=== PATIENT | female | born 1940 | race Caucasian/White ===

== ENCOUNTER → 2016-07-31 | Outpatient (REF) | payer MEDICARE, MEDICAID ==
[~2016-07-31] MED LIST: ASPI81TA85 PO; FOSA70TA PO; LEVO112T2 PO; METF500T4 PO; PRAV10TA PO; TRAD5TAB PO
== END | disposition home or self-care (01) ==
LOC: M SFHCPLAZ 17:02
PROVIDERS: ATTEND Physician Assistant Medical
DX: N30.00 Acute cystitis without hematuria (principal)
CPT/HCPCS: 81001; 87088; 87186; G0463

== ENCOUNTER → 2016-08-27 | Outpatient (REF) | payer MEDICARE, MEDICAID ==
[2016-08-27 12:14] LABS: ALBUMIN 3.3 GM/DL (3.2-5.2); ALBUMIN/GLOBULIN RATIO 0.89 (1.00-1.93); BILIRUBIN,TOTAL 0.2 MG/DL (0.2-1.0); CALCIUM LEVEL 8.4 MG/DL (8.8-10.2); CREATININE FOR GFR 1.33 MG/DL (0.55-1.02); FREE T4 1.24 NG/DL (0.76-1.46); GLOMERULAR FILTRATION RATE 41.3 (>39); POTASSIUM SERUM 4.6 MEQ/L (3.5-5.1)
== END ==
LOC: M SFHCPLAZ 09:30
PROVIDERS: ATTEND Physician Assistant Medical
DX: E78.5 Hyperlipidemia, unspecified (principal); N18.3 Chronic kidney disease, stage 3 (moderate); E03.9 Hypothyroidism, unspecified; E11.8 Type 2 diabetes mellitus with unspecified complications

== ENCOUNTER → 2016-09-04 | Outpatient (REF) | payer MEDICARE, MEDICAID ==
[2016-09-04 17:04] LABS: CALCIUM LEVEL 8.8 MG/DL (8.8-10.2); CREATININE FOR GFR 1.51 MG/DL (0.55-1.02); FREE T4 1.18 NG/DL (0.76-1.46); GLOMERULAR FILTRATION RATE 35.7 (>39); MAGNESIUM LEVEL 2.2 MG/DL (1.8-2.4); POTASSIUM SERUM 4.7 MEQ/L (3.5-5.1)
== END ==
LOC: M SFHCPLAZ 11:54
PROVIDERS: ATTEND Physician Assistant Medical
DX: R00.0 Tachycardia, unspecified (principal)

== ENCOUNTER → 2016-09-04 | Outpatient (REF) | payer MEDICARE, MEDICAID ==
[2016-09-05 15:21] LABS: FERRITIN 102 NG/ML (8-252); PERCENT SATURATION 18.3 % (13.2-37.4); TOTAL IRON BINDING CAPACITY 327 UG/DL (250-450)
[2016-09-05 15:31] LABS: VITAMIN B12 LEVEL 368 PG/ML
[2016-09-05 15:32] LABS: FOLATE > 24.0 NG/ML
== END ==
LOC: M LAB REF 14:34
PROVIDERS: ATTEND Internal Medicine Cardiovascular Disease
DX: D64.9 Anemia, unspecified (principal); I48.0 Paroxysmal atrial fibrillation; R00.0 Tachycardia, unspecified

== ENCOUNTER → 2016-09-05 | Outpatient (REF) | payer MEDICARE, MEDICAID ==
[2016-09-05 16:09] LABS: REASON FOR REVIEW COMPREHENSIVE REVIEW
[2016-09-05 16:30] LABS: BASO # 0.1 K/mm3 (0.0-0.2); EOS # 0.5 K/mm3 (0.0-0.50); EOS % 5.6 % (0.0-3.0); LARGE UNSTAINED CELL # 0.3 K/mm3 (0.0-0.4); LARGE UNSTAINED CELL % 3.5 % (0.0-4.0); LYMPH % 37.5 % (24.0-44.0); MEAN CORPUSCULAR HEMOGLOBIN 29.7 pg (27.0-33.0); MEAN CORPUSCULAR HGB CONC 31.5 g/dl (32.0-36.5); MEAN CORPUSCULAR VOLUME 94.5 fl (80.0-96.0); MONO # 0.5 K/mm3 (0.0-0.8); MONO % 6.3 % (0.0-5.0); NEUTROPHILS # 3.7 K/mm3 (1.8-7.7); NEUTROPHILS % 46.1 % (36.0-66.0); PLATELET COUNT, AUTOMATED 236 k/mm3 (150-450); RED CELL DISTRIBUTION WIDTH 13.3 % (11.5-14.5); RETIC HEMOGLOBIN CONTENT CHr 32.2 PG (24-36); RETICULOCYTE ABSOLUTE ADVIA212 47 x10(9)/L (17-77); WHITE BLOOD COUNT 8.1 K/mm3 (4.0-10.0)
[2016-09-05 16:31] LABS: MICROSCOPIC INDICATED? MAN YES (NO)
[2016-09-05 16:54] LABS: BACTERIA, URINE LARGE AMOUNT
[2016-09-05 16:55] LABS: RBC, URINE NONE SEEN /hpf (0-3); SQUAMOUS EPITHELIAL CELL URINE SMALL AMOUNT /hpf (SMALL AMT); TRANSITIONAL EPI CELLS, URINE SMALL AMOUNT /hpf; WBC, URINE 30-40 /hpf (0-3)
[2016-09-05 16:57] LABS: HYALINE CAST, URINE NONE SEEN /lpf (0-1); MICROSCOPIC EXAM PERFORMED
== END ==
LOC: M LABDRAWP 15:11
PROVIDERS: ATTEND Internal Medicine Cardiovascular Disease
DX: D64.9 Anemia, unspecified (principal)

== ENCOUNTER → 2016-10-23 | Outpatient (REF) | payer MEDICARE, MEDICAID ==
[2016-10-23 18:16] LABS: CALCIUM LEVEL 9.1 MG/DL (8.8-10.2); CREATININE FOR GFR 1.37 MG/DL (0.55-1.02); DIGOXIN LEVEL 0.8 NG/ML (0.5-2.0); FREE T4 1.13 NG/DL (0.76-1.46); GLOMERULAR FILTRATION RATE 39.9 (>39); POTASSIUM SERUM 4.5 MEQ/L (3.5-5.1)
== END ==
LOC: M SFHCPLAZ 14:57
PROVIDERS: ATTEND Physician Assistant Medical
DX: I48.3 Typical atrial flutter (principal); E03.9 Hypothyroidism, unspecified; N18.3 Chronic kidney disease, stage 3 (moderate); M81.0 Age-related osteoporosis without current pathological fracture; K42.9 Umbilical hernia without obstruction or gangrene; Z23 Encounter for immunization
CPT/HCPCS: 36415; 80048; 80162; 84439; 84443; 96372; G0463

== ENCOUNTER → 2016-12-12 | Outpatient (REF) | payer MEDICARE, MEDICAID ==
[2016-12-12 12:21] LABS: CALCIUM LEVEL 8.3 MG/DL (8.8-10.2); CREATININE FOR GFR 1.32 MG/DL (0.55-1.02); DIGOXIN LEVEL 1.2 NG/ML (0.5-2.0); FREE T4 1.26 NG/DL (0.76-1.46); GLOMERULAR FILTRATION RATE 41.7 (>39); MAGNESIUM LEVEL 2.4 MG/DL (1.8-2.4); POTASSIUM SERUM 4.5 MEQ/L (3.5-5.1)
== END ==
LOC: M SFHCPLAZ 08:39
PROVIDERS: ATTEND Physician Assistant Medical
DX: I48.3 Typical atrial flutter (principal); E78.5 Hyperlipidemia, unspecified; E11.9 Type 2 diabetes mellitus without complications; N18.3 Chronic kidney disease, stage 3 (moderate); R00.0 Tachycardia, unspecified; R20.9 Unspecified disturbances of skin sensation

== ENCOUNTER → 2017-02-28 | Outpatient (CLI) | payer MEDICARE, MEDICAID ==
[~2017-02-28] MED LIST changes: +DIGO0.12 PO; +DRIS50002 PO; -PRAV10TA PO; +PRAV10TA4 PO; +PRAV40TA2 PO; +PROL60SO SC; +VITA10002 PO; +VITA100L PO; +VITA1TAB23 PO
[2017-02-28 13:19] LABS: CREATININE FOR GFR 1.37 MG/DL (0.55-1.02); GLOMERULAR FILTRATION RATE 39.8 (>39)
== END ==
LOC: M LAB 12:04
PROVIDERS: ATTEND Physician Assistant Medical
DX: R10.9 Unspecified abdominal pain (principal)

== ENCOUNTER → 2017-03-01 | Outpatient (CLI) | payer MEDICARE, MEDICAID ==
[~2017-03-01] MED LIST changes: +GASTROGRAFIN SOLUTION 30ML (Q9963) As Ordered ONE; +ISOVUE-370 76% 100ML VIAL (Q9967) As Ordered ONE
--- NOTE | 2017-03-01 14:26 | REP ---
CT of the abdomen and pelvis with IV and bowel contrast: There are no comparison studies. The visualized lung jimenez are unremarkable except for zone zones of parenchymal scarring, not significantly changed from a chest CT of 02/28/2015. The hepatic parenchyma, gallbladder, pancreas and spleen are unremarkable. The adrenals, kidneys and abdominal aorta are unremarkable. There is no bowel distension or obstruction. However, I suspect there is pneumatosis intestinalis of the cecum. This is nonspecific and can be seen on the right. A benign causes such as patient's with emphysema, adynamic ileus, collagen vascular disease. Can be seen in patients with with serious as such as intestinal ischemia enteritis and colitis. Therefore, correlation with other clinical information is required. There are no inflammatory changes in the adjacent mesentery. There is no pneumoperitoneum. There is no ascites. There is no colonic distension or obstruction. The process appears to be confined to the cecum. The uterus, bladder are unremarkable. There is no adenopathy. Impression: I suspect there is pneumatosis intestinalis confined to the cecum. This is non specific as discussed in the body of the report. There are no focal fluid collections to suggest abscess. No inflammatory changes. No pneumoperitoneum or ascites. No bowel distension or obstruction. Signed by Gregory Berrios MD 03/01/2017 02:17 P
== END ==
LOC: M RAD 10:47
PROVIDERS: ATTEND Surgery
DX: R10.9 Unspecified abdominal pain (principal)
CPT/HCPCS: 74178; Q9963; Q9967

== ENCOUNTER 2017-04-22 06:50 | Outpatient (CLI) | payer MEDICARE, MEDICAID ==
[~2017-04-22] VITALS: Ht 170.2 cm; Wt 56.7 kg
[~2017-04-22 06:50] MED LIST changes: -GASTROGRAFIN SOLUTION 30ML (Q9963) As Ordered ONE; -ISOVUE-370 76% 100ML VIAL (Q9967) As Ordered ONE; -PRAV40TA2 PO; -VITA10002 PO
[2017-04-22] MEDS ORDERED: NS 1,000 ML IV ONE (07:15)
[2017-04-22] MEDS ORDERED: PROPOFOL 200 MG/20 ML VIAL As Ordered ONE (07:45)
[2017-04-22] MEDS ORDERED: LIDOCAINE 2% INJ 100 MG/5 ML SDV (FOR ANES.) As Ordered ONE (07:46)
[2017-04-22] MEDS ORDERED: ePHEDrine SULFATE 25 MG/5 ML(5MG/ML) SYRINGE As Ordered ONE (07:59)
--- NOTE | 2017-04-22 08:17 | ROOR ---
Patient Name: Evy Vargas Procedure Date: 04/22/2017 7:38 AM Date of : 1940 Age: 77 Room: [facility] Gender: Female Note Status: Finalized Procedure: Colonoscopy Indications: Abnormal CT of the GI tract Providers: Leonel Montiel MD Referring MD: Huong Pace Requesting Provider: Medicines: Monitored Anesthesia Care Complications: No immediate complications. Procedure: Pre-Anesthesia Assessment: - Prior to the procedure, a History and Physical was performed, and patient medications and allergies were reviewed. The patient is competent. The risks and benefits of the procedure and the sedation options and risks were discussed with the patient. All questions were answered and informed consent was obtained. Patient identification and proposed procedure were verified by the physician, the nurse and the gas distribution and emergency clerk in the procedure room. Mental Status Examination: alert and oriented. Airway Examination: normal oropharyngeal airway and neck mobility. Respiratory Examination: clear to auscultation. CV Examination: normal. Prophylactic Antibiotics: The patient does not require prophylactic antibiotics. Prior Anticoagulants: The patient has taken no previous anticoagulant or antiplatelet agents. ASA Grade Assessment: III - A patient with severe systemic disease. After reviewing the risks and benefits, the patient was deemed in satisfactory condition to undergo the procedure. The anesthesia plan was to use monitored anesthesia care (MAC). Immediately prior to administration of medications, the patient was re-assessed for adequacy to receive sedatives. The heart rate, respiratory rate, oxygen saturations, blood pressure, adequacy of pulmonary ventilation, and response to care were monitored throughout the procedure. The physical status of the patient was re-assessed after the procedure. The Colonoscope was introduced through the anus and advanced to the cecum, identified by appendiceal orifice and ileocecal valve. The colonoscopy was performed without difficulty. The patient tolerated the procedure well. The quality of the bowel preparation was good. The ileocecal valve, appendiceal orifice, and rectum were photographed. Scope insertion time was 5 minutes. Scope withdrawal time was 15 minutes. The total duration of the procedure was 20 minutes. Findings: The perianal and digital rectal examinations were normal. A 3 mm polyp was found in the ascending colon. The polyp was sessile. The polyp was removed with a cold biopsy forceps. Resection and retrieval were complete. Verification of patient identification for the specimen was done by the physician and nurse using the patient's name, date and medical record number. Estimated blood loss was minimal. Normal mucosa was found from cecum to ascending colon. Biopsies were taken with a cold forceps for histology. A 3 mm polyp was found in the rectum. The polyp was sessile. The polyp was removed with a cold biopsy forceps. Resection and retrieval were complete. External and internal hemorrhoids were found during retroflexion. The hemorrhoids were medium-sized. Impression: - One 3 mm polyp in the ascending colon, removed with a cold biopsy forceps. Resected and retrieved. - Normal mucosa from cecum to ascending colon. Biopsied. - One 3 mm polyp in the rectum, removed with a cold biopsy forceps. Resected and retrieved. - External and internal hemorrhoids. Recommendation: - Patient has a contact number available for emergencies. The signs and symptoms of potential delayed complications were discussed with the patient. Return to normal activities tomorrow. Written discharge instructions were provided to the patient. - Resume previous diet. - Continue present medications. - Await pathology results. - Repeat colonoscopy in 5 years for surveillance based on pathology results. - Return to GI clinic as previously scheduled on 05/01/2017 at 9:00 AM. - Return to primary care physician. Leonel Montiel MD Leonel Montiel MD 04/22/2017 8:16:43 AM This report has been signed electronically. Number of Addenda: 0 Note Initiated On: 04/22/2017 7:38 AM Estimated Blood Loss: Estimated blood loss: none.
[2017-04-22 08:30] VITALS: BP 116/56
[2017-05-24] MEDS ORDERED: TRAD5TAB PO (09:39)
[2017-05-24] MEDS ORDERED: PRAV40TA2 PO (09:39)
[2017-05-24] MEDS ORDERED: VITA10002 PO (09:39)
== END 2017-04-22 08:37 | disposition home or self-care (01) ==
LOC: M OPP 06:50
PROVIDERS: ATTEND Internal Medicine Gastroenterology
DX: R93.3 Abnormal findings on diagnostic imaging of other parts of digestive tract (principal); D12.2 Benign neoplasm of ascending colon; K62.1 Rectal polyp; K64.4 Residual hemorrhoidal skin tags; K64.8 Other hemorrhoids; E78.5 Hyperlipidemia, unspecified; I51.7 Cardiomegaly; I34.1 Nonrheumatic mitral (valve) prolapse; E11.9 Type 2 diabetes mellitus without complications; E04.1 Nontoxic single thyroid nodule; M19.90 Unspecified osteoarthritis, unspecified site; M51.9 Unspecified thoracic, thoracolumbar and lumbosacral intervertebral disc disorder; K42.9 Umbilical hernia without obstruction or gangrene; M81.0 Age-related osteoporosis without current pathological fracture; F41.9 Anxiety disorder, unspecified; Z78.0 Asymptomatic menopausal state; N18.3 Chronic kidney disease, stage 3 (moderate); Z88.8 Allergy status to other drugs, medicaments and biological substances; Z79.82 Long term (current) use of aspirin; Z79.899 Other long term (current) drug therapy

== ENCOUNTER 2017-05-31 11:16 | Day surgery (SDC) | payer MEDICARE ==
[~2017-05-31] VITALS: Ht 170.2 cm; Wt 53.3 kg
[~2017-05-31 11:16] MED LIST changes: +PRAV40TA2 PO; +VITA10002 PO
[2017-05-31] MEDS ORDERED: LR 1,000 ML IV ONE (11:30)
[2017-05-31] MEDS ORDERED: PROPOFOL 200 MG/20 ML VIAL As Ordered ONE (11:59)
[2017-05-31] MEDS ORDERED: fentaNYL 100 MCG/2 ML INJECTION (J3010) As Ordered ONE (11:59)
[2017-05-31] MEDS ORDERED: LIDOCAINE 2% INJ 100 MG/5 ML SDV (FOR ANES.) As Ordered ONE (11:59)
[2017-05-31] MEDS ORDERED: MIDAZOLAM INJ 2 MG/2 ML VIAL (J2250) As Ordered ONE (11:59)
[2017-05-31] MEDS ORDERED: ONDANSETRON 4MG/2ML VIAL (J2405) As Ordered ONE (11:59)
[2017-05-31] MEDS ORDERED: BUPIVACAINE LIPOSOME/PF 1.3% 20 ML VIAL (13.3MG/ML)(EXPAREL) As Ordered ONE (12:46)
[2017-05-31] MEDS ORDERED: BUPIVACAINE/EPIN 0.25% 30 ML VIAL As Ordered ONE (12:46)
[2017-05-31] MEDS ORDERED: BUPIVACAINE HCL 0.25% 30 ML VIAL As Ordered ONE (13:15)
[2017-05-31] MEDS ORDERED: ePHEDrine SULFATE 25 MG/5 ML(5MG/ML) SYRINGE As Ordered ONE (13:20)
[2017-05-31] MEDS ORDERED: GLYCOPYRROLATE INJ 0.2 MG/ML 2 ML VIAL As Ordered ONE (13:22)
--- NOTE | 2017-05-31 13:50 | RO ---
DATE OF PROCEDURE: 05/31/2017 PREOPERATIVE DIAGNOSIS: Umbilical hernia. POSTOPERATIVE DIAGNOSIS: Umbilical hernia. PROCEDURE: Umbilical hernia repair. SURGEON: Dr. Charles Barrios ANESTHESIA: General endotracheal anesthesia. ESTIMATED BLOOD LOSS: Minimal. FLUIDS: Crystalloid. BRIEF PROCEDURE SUMMARY: The patient was brought to the operating room was given general anesthesia after adequate anesthesia and preoperative antibiotics the curvilinear incision was made over the top of the umbilicus and using 15 blade. Electrocautery was used cut through dermis, underlying subcutaneous tissue down to the fascia. The fascia was grasped and the hernia sac was mobilized off the fascia itself. The fascia was mobilized circumferentially around the umbilicus. Next the hernia sac had been opened and the peritoneum opened in this site and there was some omentum adherent to the umbilicus which was mobilized off the umbilicus itself. Two [id number] Ethibonds used close the fascial defect and 3-0 Vicryl was used close the dermis, 4-0 Vicryl subcuticular was used to approximate the skin. Steri-Strips and a dry sterile dressing was applied. The patient was awakened, extubated and brought to the recovery room awake, alert and hemodynamically stable. Sponge and needle counts correct times two.
[2017-05-31] MEDS ORDERED: ONDANSETRON 4MG/2ML VIAL (J2405) IV PRN (14:00)
[2017-05-31] MEDS ORDERED: LR 1,000 ML IV SCH ×2 (14:00)
[2017-05-31] MEDS ORDERED: NORCO, ANEXSIA 5/325MG TABLET (HYDROcodone/ACETAMINOPHEN) PO PRN (14:00)
[2017-05-31] MEDS ORDERED: MEPERIDINE INJ 25 MG/ML VIAL (J2175) IV PRN (14:00)
[2017-05-31] MEDS ORDERED: PERCOCET 5MG/325MG TAB PO PRN (14:00)
[2017-05-31] MEDS ORDERED: METOCLOPRAMIDE INJ 10MG/2ML VIAL (J2765) IV PRN (14:00)
[2017-05-31] MEDS: fentaNYL 100 MCG/2 ML INJECTION (J3010) IV PRN ×3 (14:05→14:15)
[2017-05-31] MEDS ORDERED: MORPHINE 2 MG/ML 1ML SYRINGE IV PRN (14:15)
[2017-05-31 15:56] VITALS: BP 180/83
[2017-05-31] MEDS ORDERED: IBUPROFEN 400 MG TAB PO ONE (16:00)
== END 2017-05-31 16:15 | disposition home or self-care (01) ==
LOC: M SDC 11:16
PROVIDERS: ATTEND Surgery
DX: K42.9 Umbilical hernia without obstruction or gangrene (principal); E11.9 Type 2 diabetes mellitus without complications; E78.5 Hyperlipidemia, unspecified; E03.9 Hypothyroidism, unspecified; D64.9 Anemia, unspecified; I48.0 Paroxysmal atrial fibrillation; Z79.899 Other long term (current) drug therapy; Z79.82 Long term (current) use of aspirin
CPT/HCPCS: 49585; J2250; J2405; J3010

== ENCOUNTER → 2017-08-26 | Outpatient (REF) | payer MEDICARE ==
[2017-08-26 15:45] LABS: BASO # 0.1 10^3/uL (0.0-0.2); BASO % 0.8 % (0.0-1.0); EOS # 0.5 10^3/uL (0.0-0.50); EOS % 4.4 % (0.0-3.0); HEMATOCRIT 29.8 % (36.0-47.0); HEMOGLOBIN 9.3 g/dl (12.0-16.0); IMMATURE GRANULOCYTE # 0.1 10^3/uL (0-0); IMMATURE GRANULOCYTE % 0.6 % (0-0); LYMPH # 3.1 10^3/uL (1.5-4.5); MEAN CORPUSCULAR HEMOGLOBIN 29.8 pg (27.0-33.0); MEAN CORPUSCULAR HGB CONC 31.2 g/dl (32.0-36.5); MEAN CORPUSCULAR VOLUME 95.5 fl (80.0-96.0); MONO % 8.3 % (0.0-5.0); NEUTROPHILS # 7.2 10^3/uL (1.8-7.7); NEUTROPHILS % 59.9 % (36.0-66.0); PLATELET COUNT, AUTOMATED 346 10^3/uL (150-450); RED BLOOD COUNT 3.12 10^6/uL (4.00-5.40)
[2017-08-26 15:49] LABS: FERRITIN 87 NG/ML (8-252); IRON (FE) 42 UG/DL (50-170); PERCENT SATURATION 14.5 % (13.2-45.0); TOTAL IRON BINDING CAPACITY 290 UG/DL (250-450)
== END ==
LOC: M SFHCPLAZ 13:42
DX: E55.9 Vitamin D deficiency, unspecified (principal); D50.9 Iron deficiency anemia, unspecified
CPT/HCPCS: 83550

== ENCOUNTER → 2017-09-03 | Outpatient (REF) | payer MEDICARE ==
[2017-09-03 17:58] LABS: BASO # 0.1 10^3/uL (0.0-0.2); EOS # 0.6 10^3/uL (0.0-0.50); EOS % 4.5 % (0.0-3.0); HEMOGLOBIN 9.4 g/dl (12.0-16.0); IMMATURE GRANULOCYTE % 0.4 % (0-3.0); LYMPH % 24.7 % (24.0-44.0); MEAN CORPUSCULAR HEMOGLOBIN 29.3 pg (27.0-33.0); MEAN CORPUSCULAR HGB CONC 30.3 g/dl (32.0-36.5); MEAN CORPUSCULAR VOLUME 96.6 fl (80.0-96.0); MONO # 1.4 10^3/uL (0.0-0.8); MONO % 11.3 % (0.0-5.0); NEUTROPHILS # 7.1 10^3/uL (1.8-7.7); NEUTROPHILS % 58.1 % (36.0-66.0); PLATELET COUNT, AUTOMATED 354 10^3/uL (150-450); RED BLOOD COUNT 3.21 10^6/uL (4.00-5.40); RED CELL DISTRIBUTION WIDTH 14.3 % (11.5-14.5); WHITE BLOOD COUNT 12.2 10^3/uL (4.0-10.0)
[2017-09-03 19:29] LABS: ALBUMIN 3.5 GM/DL (3.2-5.2); ALBUMIN/GLOBULIN RATIO 0.88 (1.00-1.93); ALKALINE PHOSPHATASE 124 U/L (45-117); ALT/SGPT 45 U/L (12-78); ANION GAP 8 MEQ/L (8-16); AST/SGOT 28 U/L (7-37); BILIRUBIN,TOTAL 0.2 MG/DL (0.2-1.0); BLOOD UREA NITROGEN 33 MG/DL (7-18); CALCIUM LEVEL 8.7 MG/DL (8.8-10.2); CARBON DIOXIDE LEVEL 29 MEQ/L (21-32); CHLORIDE LEVEL 105 MEQ/L (98-107); CPK CREATINE PHOSPHOKINASE 242 U/L (26-192); GLOMERULAR FILTRATION RATE 51.3 (>39); GLUCOSE, FASTING 120 MG/DL (70-100); POTASSIUM SERUM 4.5 MEQ/L (3.5-5.1); SODIUM LEVEL 142 MEQ/L (136-145); TOTAL PROTEIN 7.5 GM/DL (6.4-8.2)
== END ==
LOC: M SFHCPLAZ 11:50
DX: D72.829 Elevated white blood cell count, unspecified (principal); M79.1 Myalgia
CPT/HCPCS: 82550

== ENCOUNTER → 2017-09-09 | Outpatient (CLI) | payer MEDICARE | LOC: M RAD 10:30 | DX: M79.1 Myalgia (principal); G89.18 Other acute postprocedural pain; M79.651 Pain in right thigh; M79.652 Pain in left thigh | CPT/HCPCS: 93970 ==

== ENCOUNTER → 2017-10-03 | Outpatient (REF) | payer MEDICARE ==
[2017-10-03 16:31] LABS: FREE T4 1.32 NG/DL (0.76-1.46)
== END ==
LOC: M SFHCPLAZ 14:21
DX: R63.4 Abnormal weight loss (principal)
CPT/HCPCS: 84443

== ENCOUNTER → 2017-11-01 | Outpatient (REF) | payer MEDICARE ==
[2017-11-01 10:54] LABS: BASO # 0.1 10^3/uL (0.0-0.2); BASO % 0.6 % (0.0-1.0); EOS # 0.3 10^3/uL (0.0-0.50); EOS % 2.4 % (0.0-3.0); HEMATOCRIT 32.2 % (36.0-47.0); IMMATURE GRANULOCYTE % 0.5 % (0-3.0); LYMPH # 2.6 10^3/uL (1.5-4.5); LYMPH % 21.8 % (24.0-44.0); MEAN CORPUSCULAR HEMOGLOBIN 30.1 pg (27.0-33.0); MEAN CORPUSCULAR HGB CONC 31.1 g/dl (32.0-36.5); MONO # 0.9 10^3/uL (0.0-0.8); MONO % 7.6 % (0.0-5.0); NEUTROPHILS # 8.1 10^3/uL (1.8-7.7); NEUTROPHILS % 67.1 % (36.0-66.0); PLATELET COUNT, AUTOMATED 348 10^3/uL (150-450); RED BLOOD COUNT 3.32 10^6/uL (4.00-5.40); RED CELL DISTRIBUTION WIDTH 13.9 % (11.5-14.5); RETIC HEMOGLOBIN EQUIVALENT 34.2 pg (24-36); RETICULOCYTE # 52.8 10^9/L (17-77); RETICULOCYTE % 1.6 % (0.5-1.5); WHITE BLOOD COUNT 12.1 10^3/uL (4.0-10.0)
[2017-11-01 10:56] LABS: HEMATOCRIT 32.2 % (36.0-47.0)
[2017-11-01 11:17] LABS: ALBUMIN 3.3 GM/DL (3.2-5.2); ALBUMIN/GLOBULIN RATIO 0.77 (1.00-1.93); ALKALINE PHOSPHATASE 105 U/L (45-117); ALT/SGPT 28 U/L (12-78); ANION GAP 10 MEQ/L (8-16); AST/SGOT 18 U/L (7-37); BILIRUBIN,TOTAL 0.2 MG/DL (0.2-1.0); BLOOD UREA NITROGEN 33 MG/DL (7-18); CALCIUM LEVEL 8.7 MG/DL (8.8-10.2); CARBON DIOXIDE LEVEL 23 MEQ/L (21-32); CHLORIDE LEVEL 108 MEQ/L (98-107); CREATININE FOR GFR 1.32 MG/DL (0.55-1.30); FREE T4 1.23 NG/DL (0.76-1.46); GLOMERULAR FILTRATION RATE 41.5 (>39); GLUCOSE, FASTING 257 MG/DL (70-100); POTASSIUM SERUM 4.8 MEQ/L (3.5-5.1); SODIUM LEVEL 141 MEQ/L (136-145); TOTAL PROTEIN 7.6 GM/DL (6.4-8.2)
[2017-11-01 11:26] LABS: VITAMIN B12 LEVEL > 2000 PG/ML (247-911)
[2017-11-01 12:15] LABS: TOTAL PROTEIN,RANDOM URINE 27.3 MG/DL (0.0-12.0)
[2017-11-01 13:01] LABS: PRETREATED FOLATE FOR RBCFOL 15.6 NG/ML; RBC FOLATE 1017.4 NG/ML (280-791)
[2017-11-05 11:07] LABS: ALBUMIN 3.72 GM/DL (3.29-5.55); ALBUMIN % 48.9 % (55.8-66.1); ALPHA-1-GLOBULIN % 5.5 % (2.9-4.9); ALPHA-1-GLOBULINS 0.42 GM/DL (0.17-0.41); ALPHA-2-GLOBULINS 0.91 GM/DL (0.42-0.99); BETA-1-GLOBULINS 0.53 GM/DL (0.28-0.60); BETA-2-GLOBULINS 0.56 GM/DL (0.19-0.55); BETA-2-GLOBULINS % 7.4 % (3.2-6.5); GAMMA GLOBULIN % 19.2 % (11.1-18.8); GAMMA GLOBULINS 1.46 GM/DL (0.65-1.58)
== END ==
LOC: M SFHCPLAZ 09:24
DX: R63.4 Abnormal weight loss (principal); D64.9 Anemia, unspecified
CPT/HCPCS: 84165

== ENCOUNTER → 2017-11-11 | Outpatient (REF) | payer MEDICARE ==
[2017-11-11 12:24] LABS: ALBUMIN 3.5 GM/DL (3.2-5.2); ANION GAP 10 MEQ/L (8-16); BLOOD UREA NITROGEN 38 MG/DL (7-18); C REACTIVE PROTEIN QUANTITATIV 2.66 MG/DL (0.00-0.30); CALCIUM LEVEL 8.8 MG/DL (8.8-10.2); CARBON DIOXIDE LEVEL 24 MEQ/L (21-32); CHLORIDE LEVEL 108 MEQ/L (98-107); CREATININE FOR GFR 1.32 MG/DL (0.55-1.30); GLOMERULAR FILTRATION RATE 41.5 (>39); GLUCOSE, FASTING 166 MG/DL (70-100); PHOSPHORUS LEVEL 3.5 MG/DL (2.5-4.9); POTASSIUM SERUM 4.2 MEQ/L (3.5-5.1); SODIUM LEVEL 142 MEQ/L (136-145)
[2017-11-11 13:36] LABS: ERYTHROCYTE SEDIMENTATION RATE 78 mm/hr (0-30)
== END ==
LOC: M SFHCPLAZ 10:09
DX: D72.820 Lymphocytosis (symptomatic) (principal)
CPT/HCPCS: 80069

== ENCOUNTER → 2017-11-13 | Outpatient (CLI) | payer MEDICARE, MEDICAID ==
[~2017-11-13] MED LIST changes: -ASPI81TA85 PO; -DIGO0.12 PO; -DRIS50002 PO; -FOSA70TA PO; +ISOVUE-370 76% 100ML VIAL (Q9967) As Ordered; -LEVO112T2 PO; -METF500T4 PO; -PRAV10TA4 PO; -PRAV40TA2 PO; -PROL60SO SC; -TRAD5TAB PO; -VITA10002 PO; -VITA100L PO; -VITA1TAB23 PO
== END ==
LOC: M RAD 14:50
DX: D72.820 Lymphocytosis (symptomatic) (principal); R53.83 Other fatigue; R63.4 Abnormal weight loss
CPT/HCPCS: Q9967

== ENCOUNTER → 2017-11-28 | Outpatient (CLI) | payer MEDICARE, MEDICAID | LOC: M LRY 13:40 | DX: M25.541 Pain in joints of right hand (principal) | CPT/HCPCS: 72052 ==

== ENCOUNTER 2018-01-30 13:26 | Outpatient (RCR) | payer MEDICARE, MEDICAID | END 2018-02-18 | LOC: M PT 13:26 | DX: Z51.89 Encounter for other specified aftercare (principal); M25.511 Pain in right shoulder | CPT/HCPCS: 97110 ==

== ENCOUNTER → 2018-02-03 | Outpatient (REF) | payer MEDICARE ==
[2018-02-03 20:06] LABS: FREE T4 1.15 NG/DL (0.76-1.46)
== END ==
LOC: M SFHCPLAZ 14:58
DX: E03.9 Hypothyroidism, unspecified (principal)
CPT/HCPCS: 84443

== ENCOUNTER 2018-02-20 13:57 | Outpatient (RCR) | payer MEDICARE, MEDICAID | END 2018-03-21 | LOC: M PT 13:57 | DX: Z51.89 Encounter for other specified aftercare (principal); M25.511 Pain in right shoulder | CPT/HCPCS: 97110 ==

== ENCOUNTER → 2018-02-27 | Outpatient (REF) | payer MEDICARE, MEDICAID ==
[2018-02-27 17:33] LABS: RETIC HEMOGLOBIN EQUIVALENT 36.6 pg (24-36); RETICULOCYTE # 47.7 10^9/L (17-77); RETICULOCYTE % 1.4 % (0.5-1.5)
[2018-02-27 17:41] LABS: REASON FOR REVIEW WBC/LEUKEMIA/BLAST; SLIDE REVIEW Report; SOURCE PERIPHERAL SMEAR
[2018-02-27 17:51] LABS: FERRITIN 95 NG/ML (8-252)
== END ==
LOC: M LAB REF 17:02
DX: D72.820 Lymphocytosis (symptomatic) (principal); D63.8 Anemia in other chronic diseases classified elsewhere
CPT/HCPCS: 82728

== ENCOUNTER → 2018-03-10 | Outpatient (REF) | payer MEDICARE, MEDICAID ==
[2018-03-10 18:20] LABS: MALB URINE SIEMENS 43.7 MG/L; MAU/CREAT RATIO 36.7 MCG/MG (0.0-30.0)
== END ==
LOC: M SFHCPLAZ 17:21
DX: E11.9 Type 2 diabetes mellitus without complications (principal)
CPT/HCPCS: 82043

== ENCOUNTER → 2018-03-11 | Outpatient (REF) | payer MEDICARE ==
[2018-03-11 18:27] LABS: BASO # 0.1 10^3/uL (0.0-0.2); BASO % 0.8 % (0.0-1.0); EOS # 0.4 10^3/uL (0.0-0.50); EOS % 3.7 % (0.0-3.0); IMMATURE GRANULOCYTE % 0.3 % (0-3.0); LYMPH # 3.3 10^3/uL (1.5-4.5); LYMPH % 32.5 % (24.0-44.0); MEAN CORPUSCULAR HEMOGLOBIN 31.6 pg (27.0-33.0); MEAN CORPUSCULAR HGB CONC 32.4 g/dl (32.0-36.5); MEAN CORPUSCULAR VOLUME 97.7 fl (80.0-96.0); MONO # 0.9 10^3/uL (0.0-0.8); MONO % 8.5 % (0.0-5.0); NEUTROPHILS # 5.5 10^3/uL (1.8-7.7); NEUTROPHILS % 54.2 % (36.0-66.0); PLATELET COUNT, AUTOMATED 292 10^3/uL (150-450); RED BLOOD COUNT 3.48 10^6/uL (4.00-5.40); RED CELL DISTRIBUTION WIDTH 13.2 % (11.5-14.5); WHITE BLOOD COUNT 10.2 10^3/uL (4.0-10.0)
[2018-03-11 19:24] LABS: ALBUMIN 3.5 GM/DL (3.2-5.2); ALBUMIN/GLOBULIN RATIO 0.92 (1.00-1.93); ALKALINE PHOSPHATASE 99 U/L (45-117); ALT/SGPT 29 U/L (12-78); ANION GAP 8 MEQ/L (8-16); AST/SGOT 20 U/L (7-37); BILIRUBIN,TOTAL 0.2 MG/DL (0.2-1.0); BLOOD UREA NITROGEN 26 MG/DL (7-18); CALCIUM LEVEL 8.8 MG/DL (8.8-10.2); CARBON DIOXIDE LEVEL 27 MEQ/L (21-32); CHLORIDE LEVEL 109 MEQ/L (98-107); DIGOXIN LEVEL 1.1 NG/ML (0.5-2.0); FERRITIN 90 NG/ML (8-252); FREE T4 0.95 NG/DL (0.76-1.46); GLOMERULAR FILTRATION RATE 46.3 (>39); GLUCOSE, FASTING 122 MG/DL (70-100); IRON (FE) 104 UG/DL (50-170); PERCENT SATURATION 39.1 % (13.2-45.0); POTASSIUM SERUM 4.6 MEQ/L (3.5-5.1); SODIUM LEVEL 144 MEQ/L (136-145); TOTAL IRON BINDING CAPACITY 266 UG/DL (250-450); TOTAL PROTEIN 7.3 GM/DL (6.4-8.2)
== END ==
LOC: M SFHCPLAZ 12:47
DX: E03.9 Hypothyroidism, unspecified (principal); I48.3 Typical atrial flutter; E11.9 Type 2 diabetes mellitus without complications; D50.9 Iron deficiency anemia, unspecified
CPT/HCPCS: 80162

== ENCOUNTER → 2018-03-17 | Outpatient (REF) | payer MEDICARE ==
[2018-03-17 21:45] LABS: ESTIMATED AVERAGE GLUCOSE 160 MG/DL (60-110); HEMOGLOBIN A1c 7.2 %
== END ==
LOC: M SFHCPLAZ 15:54
DX: E11.9 Type 2 diabetes mellitus without complications (principal)
CPT/HCPCS: 83036

== ENCOUNTER → 2018-09-18 | Outpatient (CLI) | payer MEDICARE, MEDICAID ==
[~2018-09-18] MED LIST changes: +ASPI81TA85 PO; +DIGO0.12 PO; +DRIS50003 PO; +FERR140T2 PO; +FOSA70TA PO; -ISOVUE-370 76% 100ML VIAL (Q9967) As Ordered; +LEVO112T2 PO; +METF500T4 PO; +PRAV10TA4 PO; +PRAV40TA2 PO; +PROL60SO SC; +TRAD5TAB PO; +VITA10002 PO; +VITA100L PO; +VITA1TAB23 PO
--- NOTE | 2018-09-18 12:11 | REP ---
Clinical: History of heart disease and diabetic retinopathy. Technique: Jernigan scale and color Doppler evaluation using linear high frequency transducer Findings: Two-dimensional jernigan scale and color images demonstrate moderate predominantly noncalcified atheromatous plaquing along the bilateral common carotid arteries extending to the proximal internal and external carotid arteries. Essentially normal laminar flow is noted without significant visible areas of narrowing. Color Doppler interrogation demonstrates normal arterial wave patterns and velocities with no significant spectral broadening. Normal flow direction is appreciated in the bilateral vertebral arteries. RIGHT (cm/s) LEFT (cm/s) ICA peak systolic velocity 104.0 103.0 ICA diastolic velocity 27.3 28.6 ECA peak systolic velocity 77.9 112.0 CCA peak systolic velocity 96.6 157.0 ICA/CCA ratio 1.08 0.66 Impression: No hemodynamically significant areas of narrowing or stenosis appreciated. Based on set standards narrowing falls within the less than 50% range. Electronically Signed by Manuel Davis MD 09/18/2018 12:03 P
== END ==
LOC: M RAD 11:18
PROVIDERS: ATTEND Physician Assistant Medical
DX: E11.3592 Type 2 diabetes mellitus with proliferative diabetic retinopathy without macular edema, left eye (principal)

== ENCOUNTER → 2018-09-21 | Outpatient (REF) | payer MEDICARE ==
[2018-09-21 19:50] LABS: ALBUMIN 3.6 GM/DL (3.2-5.2); BILIRUBIN,TOTAL 0.3 MG/DL (0.2-1.0); CALCIUM LEVEL 8.7 MG/DL (8.8-10.2); CHOLESTEROL RISK RATIO 2.829 (<5); CREATININE FOR GFR 1.05 MG/DL (0.55-1.30); POTASSIUM SERUM 4.8 MEQ/L (3.5-5.1); TOTAL PROTEIN 7.1 GM/DL (6.4-8.2)
[2018-09-21 20:04] LABS: HEMOGLOBIN A1c 7.5 %
[2018-09-21 20:09] LABS: MALB URINE SIEMENS 43.7 MG/L; MAU/CREAT RATIO 46.4 MCG/MG (0.0-30.0)
[2018-09-22 11:02] LABS: TOTAL 25(OH) VITAMIN D 103.4 NG/ML (30.0-100.0)
== END ==
LOC: M SFHCLERA 13:29
PROVIDERS: ATTEND Physician Assistant Medical
DX: N18.3 Chronic kidney disease, stage 3 (moderate) (principal); E11.9 Type 2 diabetes mellitus without complications; E78.2 Mixed hyperlipidemia; E55.9 Vitamin D deficiency, unspecified

== ENCOUNTER → 2019-03-02 | Outpatient (REF) | payer MEDICARE ==
[~2019-03-02] MED LIST changes: +CYAN100049 PO; -VITA10002 PO
[2019-03-02 17:25] LABS: BASO # 0.1 10^3/uL (0.0-0.2); BASO % 0.6 % (0.0-1.0); EOS # 0.5 10^3/uL (0.0-0.50); EOS % 5.3 % (0.0-3.0); HEMATOCRIT 33.5 % (36.0-47.0); HEMOGLOBIN 10.7 g/dl (12.0-15.5); LYMPH # 3.3 10^3/uL (1.5-4.5); LYMPH % 38.1 % (24.0-44.0); MEAN CORPUSCULAR HEMOGLOBIN 31.6 pg (27.0-33.0); MEAN CORPUSCULAR HGB CONC 31.9 g/dl (32.0-36.5); MEAN CORPUSCULAR VOLUME 98.8 fl (80.0-96.0); MONO # 0.7 10^3/uL (0.0-0.8); MONO % 8.3 % (0.0-5.0); NEUTROPHILS # 4.1 10^3/uL (1.8-7.7); NEUTROPHILS % 47.5 % (36.0-66.0); PLATELET COUNT, AUTOMATED 253 10^3/uL (150-450); RED BLOOD COUNT 3.39 10^6/uL (4.00-5.40); WHITE BLOOD COUNT 8.7 10^3/uL (4.0-10.0)
[2019-03-02 17:29] LABS: FREE T4 1.65 NG/DL (0.76-1.46); THYROID STIMULATING HORMONE 0.007 uIU/ML (0.358-3.740)
[2019-03-02 19:16] LABS: HEMOGLOBIN A1c 7.7 %
== END ==
LOC: M SFHCPLAZ 15:12
PROVIDERS: ATTEND Physician Assistant Medical
DX: D50.9 Iron deficiency anemia, unspecified (principal); E03.9 Hypothyroidism, unspecified; E11.9 Type 2 diabetes mellitus without complications; Z23 Encounter for immunization
CPT/HCPCS: 82728; 83036; 83540; 84439; 84443; 85025; 90471; 90732; G0463

== ENCOUNTER → 2019-03-09 | Outpatient (REF) | payer MEDICARE | LOC: M SFHCPLAZ 15:08 | PROVIDERS: ATTEND Physician Assistant Medical | DX: I48.0 Paroxysmal atrial fibrillation (principal) ==

== ENCOUNTER → 2019-07-29 | Outpatient (REF) | payer MEDICARE ==
[~2019-07-29] MED LIST changes: +METF-791 PO; -METF500T4 PO
== END ==
LOC: M SFHCLERA 16:34
PROVIDERS: ATTEND Physician Assistant Medical
DX: N30.01 Acute cystitis with hematuria (principal)
CPT/HCPCS: 81002; 87088; 87186; G0463

== ENCOUNTER → 2019-08-13 | Outpatient (CLI) | payer MEDICARE ==
[2019-08-13 17:51] LABS: BASO # 0.1 10^3/uL (0.0-0.2); BASO % 1.3 % (0.0-1.0); EOS # 0.6 10^3/uL (0.0-0.5); EOS % 6.9 % (0.0-3.0); HEMOGLOBIN 10.2 g/dl (12.0-15.5); LYMPH # 3.4 10^3/uL (1.5-5.0); LYMPH % 36.9 % (24.0-44.0); MEAN CORPUSCULAR HEMOGLOBIN 30.9 pg (27.0-33.0); MEAN CORPUSCULAR HGB CONC 30.9 g/dl (32.0-36.5); MONO # 0.8 10^3/uL (0.0-0.8); NEUTROPHILS # 4.2 10^3/uL (1.5-8.5); NEUTROPHILS % 45.7 % (36.0-66.0); PLATELET COUNT, AUTOMATED 321 10^3/uL (150-450); WHITE BLOOD COUNT 9.2 10^3/uL (4.0-10.0)
[2019-08-13 18:04] LABS: HEMOGLOBIN A1c 7.3 %
[2019-08-13 18:33] LABS: ALBUMIN 3.4 GM/DL (3.2-5.2); BILIRUBIN,TOTAL 0.2 MG/DL (0.2-1.0); CREATININE FOR GFR 1.19 MG/DL (0.55-1.30); DIGOXIN LEVEL 0.4 NG/ML (0.5-2.0); FREE T4 2.01 NG/DL (0.76-1.46); GLOMERULAR FILTRATION RATE 46.6 (>39); POTASSIUM SERUM 4.7 MEQ/L (3.5-5.1); PTH INTACT 63.8 PG/ML (18.5-88.0); THYROID STIMULATING HORMONE 0.01 uIU/ML (0.358-3.740); TOTAL 25(OH) VITAMIN D 75.8 NG/ML (30.0-100.0); TOTAL PROTEIN 7.1 GM/DL (6.4-8.2)
== END ==
LOC: M PLALAB 15:57
PROVIDERS: ATTEND Physician Assistant Medical
DX: I48.0 Paroxysmal atrial fibrillation (principal); D50.9 Iron deficiency anemia, unspecified; E11.8 Type 2 diabetes mellitus with unspecified complications; E03.9 Hypothyroidism, unspecified; E78.2 Mixed hyperlipidemia; E55.9 Vitamin D deficiency, unspecified

== ENCOUNTER → 2019-08-24 | Outpatient (CLI) | payer MEDICARE ==
--- NOTE | 2019-09-02 13:18 | DEXA ---
AP SPINE L1 - L4 0.989 -1.7 0.2 LT FEMUR TOTAL 0.701 -2.4 -0.5 LT NECK 0.862 -1.3 0.9 RT FEMUR TOTAL 0.689 -2.5 -0.6 RT NECK 0.789 -1.8 0.3 TOTAL BODY TOTAL OTHER COMMENTS: Normal bone densitometry of the spine and hips. The density of the spine has increased 5.0% since the initial exam on 06/29/2005. The spine density has decreased 4.5% since the most recent exam on 07/23/2017. The density of the left hip has decreased 5.7% since the initial exam on 06/29/2005. The density of the left hip has decreased 3.6% since the most recent exam on 07/23/2017. The density of the right hip has decreased 5.7% since the initial exam on 06/29/2005. The density of the right hip has decreased 3.2% since the most recent exam on 07/23/2017. FOLLOW-UP: Recommendation for the next bone density exam: 5 years. FORTUNATOD
== END ==
LOC: M WHC 12:48
PROVIDERS: ATTEND Physician Assistant Medical
DX: M81.0 Age-related osteoporosis without current pathological fracture (principal); M85.851 Other specified disorders of bone density and structure, right thigh; M85.852 Other specified disorders of bone density and structure, left thigh; M85.88 Other specified disorders of bone density and structure, other site

== ENCOUNTER → 2019-12-10 | Outpatient (REF) | payer MEDICARE ==
[~2019-12-10] MED LIST changes: -METF-791 PO; +METF-838 PO
[2019-12-10 18:21] LABS: BASO # 0.1 10^3/uL (0.0-0.2); BASO % 0.9 % (0.0-1.0); EOS # 0.4 10^3/uL (0.0-0.5); EOS % 5.1 % (0.0-3.0); HEMOGLOBIN 11.1 g/dl (12.0-15.5); LYMPH # 2.9 10^3/uL (1.5-5.0); LYMPH % 33.9 % (24.0-44.0); MEAN CORPUSCULAR HEMOGLOBIN 31.8 pg (27.0-33.0); MEAN CORPUSCULAR HGB CONC 32.6 g/dl (32.0-36.5); MEAN CORPUSCULAR VOLUME 97.4 fl (80.0-96.0); MONO # 0.8 10^3/uL (0.0-0.8); MONO % 8.6 % (0.0-5.0); NEUTROPHILS # 4.5 10^3/uL (1.5-8.5); NEUTROPHILS % 51.3 % (36.0-66.0); PLATELET COUNT, AUTOMATED 269 10^3/uL (150-450); RED BLOOD COUNT 3.49 10^6/uL (4.00-5.40); WHITE BLOOD COUNT 8.7 10^3/uL (4.0-10.0)
[2019-12-10 19:02] LABS: DIGOXIN LEVEL 0.4 NG/ML (0.5-2.0); TOTAL PROTEIN 7.4 GM/DL (6.4-8.2); VITAMIN B12 LEVEL 357 PG/ML (247-911)
[2019-12-15 10:18] LABS: ALBUMIN 4.07 GM/DL (3.29-5.55); ALPHA-1-GLOBULIN % 4.3 % (2.9-4.9); ALPHA-1-GLOBULINS 0.32 GM/DL (0.17-0.41); ALPHA-2-GLOBULINS 0.78 GM/DL (0.42-0.99); ALPHA-2-GLOBULINS % 10.5 % (7.1-11.8); BETA-1-GLOBULINS 0.51 GM/DL (0.28-0.60); BETA-1-GLOBULINS % 6.9 % (4.7-7.2); BETA-2-GLOBULINS 0.47 GM/DL (0.19-0.55); BETA-2-GLOBULINS % 6.4 % (3.2-6.5); GAMMA GLOBULIN % 16.9 % (11.1-18.8); GAMMA GLOBULINS 1.25 GM/DL (0.65-1.58)
== END ==
LOC: M SFHCPLAZ 15:31
PROVIDERS: ATTEND Physician Assistant Medical
DX: D50.9 Iron deficiency anemia, unspecified (principal); E11.8 Type 2 diabetes mellitus with unspecified complications; I48.0 Paroxysmal atrial fibrillation
CPT/HCPCS: 36415; 80162; 82607; 82747; 84165; 85025; 86335; G0463

== ENCOUNTER → 2020-04-18 | Outpatient (CLI) | payer MEDICARE ==
[~2020-04-18] MED LIST changes: -ASPI81TA85 PO; +ASPI81TA86 PO; -VITA1TAB23 PO; +VITA250T26 PO
--- NOTE | 2020-04-27 13:30 | REPPI ---
LEFT KNEE SERIES HISTORY: Pain. TECHNIQUE: Five views of the left knee are performed. FINDINGS: No acute fracture or dislocation is seen. There is mild chondrocalcinosis in the medial and lateral joints. The joint spaces appear relatively well preserved. I do not see a significant joint effusion. IMPRESSION: Mild chondrocalcinosis without other significant finding. MTDD
== END ==
LOC: M PLAIMG 14:28
PROVIDERS: ATTEND Physician Assistant Medical
DX: M11.262 Other chondrocalcinosis, left knee (principal); M25.562 Pain in left knee

== ENCOUNTER → 2020-04-25 | Outpatient (CLI) | payer MEDICARE ==
[2020-04-25 14:01] LABS: BASO # 0.1 10^3/uL (0.0-0.2); BASO % 1.1 % (0.0-1.0); EOS # 0.4 10^3/uL (0.0-0.5); EOS % 4.4 % (0.0-3.0); HEMOGLOBIN 10.1 g/dl (12.0-15.5); LYMPH # 2.3 10^3/uL (1.5-5.0); LYMPH % 27.5 % (24.0-44.0); MEAN CORPUSCULAR HEMOGLOBIN 31.3 pg (27.0-33.0); MEAN CORPUSCULAR HGB CONC 31.6 g/dl (32.0-36.5); MEAN CORPUSCULAR VOLUME 99.1 fl (80.0-96.0); MONO # 0.8 10^3/uL (0.0-0.8); MONO % 9.5 % (0.0-5.0); NEUTROPHILS # 4.7 10^3/uL (1.5-8.5); NEUTROPHILS % 57.1 % (36.0-66.0); PLATELET COUNT, AUTOMATED 239 10^3/uL (150-450); RED BLOOD COUNT 3.23 10^6/uL (4.00-5.40); WHITE BLOOD COUNT 8.2 10^3/uL (4.0-10.0)
[2020-04-25 14:22] LABS: ALBUMIN 3.5 GM/DL (3.2-5.2); BILIRUBIN,TOTAL 0.3 MG/DL (0.2-1.0); CALCIUM LEVEL 8.9 MG/DL (8.8-10.2); CHOLESTEROL RISK RATIO 2.316 (<5); CREATININE FOR GFR 1.37 MG/DL (0.55-1.30); DIGOXIN LEVEL 1.3 NG/ML (0.5-2.0); FREE T4 1.75 NG/DL (0.76-1.46); GLOMERULAR FILTRATION RATE 39.5 (>32); PTH INTACT 72.9 PG/ML (18.5-88.0); THYROID STIMULATING HORMONE 0.265 uIU/ML (0.358-3.740); TOTAL 25(OH) VITAMIN D 58.4 NG/ML (30.0-100.0); TOTAL PROTEIN 7.2 GM/DL (6.4-8.2)
== END ==
LOC: M PLALAB 09:36
PROVIDERS: ATTEND Physician Assistant Medical
DX: D50.9 Iron deficiency anemia, unspecified (principal); E11.8 Type 2 diabetes mellitus with unspecified complications; I48.0 Paroxysmal atrial fibrillation; G03.9 Meningitis, unspecified; I10 Essential (primary) hypertension; E55.9 Vitamin D deficiency, unspecified; E78.2 Mixed hyperlipidemia

== ENCOUNTER → 2020-04-26 | Outpatient (CLI) | payer MEDICARE ==
--- NOTE | 2020-05-03 08:17 | REP ---
BILATERAL LOWER EXTREMITY DUPLEX DOPPLER ARTERIAL ULTRASOUND: 04/26/20 HISTORY: Bilateral lower extremity claudication. Real-time ultrasound evaluation and duplex Doppler interrogation of the bilateral lower extremity arterial systems is performed. There is mild plaquing scattered throughout the arterial structures of the right lower extremity but no duplex Doppler sonographic evidence of hemodynamically significant stenosis. Diffuse biphasic waveforms are recorded throughout the right lower extremity. On the left, mild to moderate diffuse plaquing is seen. There is a peak systolic velocity in the region of the tibial peroneal trunk and proximal posterior tibial artery suggesting stenosis at that level. No other definite stenosis is visualized in the left lower extremity arterial structures. Diffuse biphasic waveforms are recorded. Peak systolic velocity of the distal abdominal aorta is 60.6 cm/s. RIGHT Peak Systolic Velocity LEFT Peak Systolic Velocity Common femoral artery 169.4 cm/s 119.4 cm/s Profunda 101.2 81.4 Proximal SFA 165.1 99.6 Mid SFA 162.0 164.3 Distal SFA 105.8 153.7 Popliteal 93.7 69.4 Proximal VERONA 157.4 93.3 Tibia Peroneal trunk 104.7 142.1 Proximal ASSISTANT FOOD SERVICE DIRECTOR 50.3 195.5 Distal ASSISTANT [employer]OD SERVICE DIRECTOR 95.4 66.3 Distal VERONA 105.9 107.0 MTDD
== END ==
LOC: M RAD 12:48
PROVIDERS: ATTEND Physician Assistant Medical
DX: I70.213 Atherosclerosis of native arteries of extremities with intermittent claudication, bilateral legs (principal)

== ENCOUNTER → 2020-05-17 | Outpatient (CLI) | payer MEDICARE ==
--- NOTE | 2020-05-17 17:47 | REP ---
INDICATION: R60.0 LEG EDEMA - RIGHT COMPARISON: 09/09/2017. TECHNIQUE: Real time compression and duplex Doppler interrogation of the right lower extremity deep venous system is performed. FINDINGS: The right common femoral, superficial femoral and popliteal veins are fully compressible with transducer pressure and demonstrate normal spontaneous and phasic flow, without evidence of deep venous thrombosis. IMPRESSION: No evidence of deep venous thrombosis of the right lower extremity femoral popliteal venous system. <Electronically signed by Gregory Jernigan > 05/17/20 [id number]
== END ==
LOC: M WHC 15:21
PROVIDERS: ATTEND Physician Assistant Medical
DX: R60.0 Localized edema (principal)
CPT/HCPCS: 93971; G0463

== ENCOUNTER → 2020-05-26 | Outpatient (CLI) | payer MEDICARE ==
--- NOTE | 2020-05-26 15:55 | REPPI ---
INDICATION: M51.36 LUMBAR DEGENERATIVE DISK DISEASE. COMPARISON: CT abdomen and pelvis reconstructions 03/01/2017 TECHNIQUE: Five views FINDINGS: There is very gentle levoconvex curvature of the lumbar spine centered at L2-3. Small marginal osteophytes are seen at most levels. There is disc space narrowing at L4-5, L2-3 and minimally at L3-4. Slight progression of disc space narrowing compared to CT 3 years ago. Facet arthropathy at L4-5 and L5-S1. No spondylolysis or spondylolisthesis. The pedicles, spinous and transverse processes are grossly intact. Lower thoracic vertebral bodies and visualized ribs were intact. Sacral ala and foramina intact. SI joints show some sclerosis along the iliac margin of the SI joints. IMPRESSION: 1. Some degenerative disc disease with marginal osteophytes throughout and mild disc space narrowing at several levels with some progression since 2017. No compression deformity or destructive lesion. 2. Facet arthropathy L5-S1 and L4-5. No spondylolysis or spondylolisthesis. Minor sclerosis along the iliac margins of SI joints also noted. No erosions. <Electronically signed by Jasen Villaseñor > 05/26/20 2002
== END ==
LOC: M PLAIMG 15:03
PROVIDERS: ATTEND Physician Assistant Medical
DX: M51.36 Other intervertebral disc degeneration, lumbar region (principal); M25.78 Osteophyte, vertebrae; M46.96 Unspecified inflammatory spondylopathy, lumbar region; M46.97 Unspecified inflammatory spondylopathy, lumbosacral region

== ENCOUNTER → 2020-06-01 | Outpatient (CLI) | payer MEDICARE ==
--- NOTE | 2020-06-03 04:46 | REP ---
INDICATION: PAIN IN LEGS COMPARISON: None. TECHNIQUE: Jernigan scale and color Doppler evaluation using linear high frequency transducer including reflux evaluation. FINDINGS: Ultrasound examination of the right and left lower extremity deep venous structures from the common femoral vein to the popliteal vein demonstrates normal compressibility flow and wave patterns in response to respiration and augmentation. There is no evidence for deep venous thrombosis. Bilateral lower extremities demonstrate reflux only through the deep venous system (common femoral vein, superficial femoral vein and popliteal vein) without evidence for reflux through the superficial system. IMPRESSION: No evidence for deep venous thrombosis. Reflux noted through the bilateral deep venous system. <Electronically signed by Manuel Davis > 06/03/20 0449
== END ==
LOC: M RAD 13:16
PROVIDERS: ATTEND Physician Assistant
DX: M79.604 Pain in right leg (principal); M79.605 Pain in left leg; I87.2 Venous insufficiency (chronic) (peripheral)

== ENCOUNTER → 2020-06-22 | Outpatient (REF) | payer MEDICARE ==
[2020-06-22 17:58] LABS: FREE T4 1.96 NG/DL (0.76-1.46); THYROID STIMULATING HORMONE 0.037 uIU/ML (0.358-3.740)
[2020-06-22 18:42] LABS: HEMOGLOBIN A1c 7.5 %
== END ==
LOC: M SFHCPLAZ 15:15
PROVIDERS: ATTEND Physician Assistant Medical
DX: N18.30 Chronic kidney disease, stage 3 unspecified (principal); E11.8 Type 2 diabetes mellitus with unspecified complications; E03.9 Hypothyroidism, unspecified

== ENCOUNTER → 2020-12-01 | Outpatient (REF) | payer MEDICARE ==
[2020-12-01 11:51] LABS: BASO # 0.1 10^3/uL (0.0-0.2); BASO % 1.2 % (0.0-1.0); EOS # 0.3 10^3/uL (0.0-0.5); EOS % 3.9 % (0.0-3.0); HEMATOCRIT 36.2 % (36.0-47.0); HEMOGLOBIN 11.1 g/dl (12.0-15.5); LYMPH # 3.3 10^3/uL (1.5-5.0); LYMPH % 37.7 % (24.0-44.0); MEAN CORPUSCULAR HEMOGLOBIN 31.1 pg (27.0-33.0); MEAN CORPUSCULAR HGB CONC 30.7 g/dl (32.0-36.5); MEAN CORPUSCULAR VOLUME 101.4 fl (80.0-96.0); MONO # 0.9 10^3/uL (0.0-0.8); MONO % 9.8 % (2.0-8.0); NEUTROPHILS # 4.1 10^3/uL (1.5-8.5); NEUTROPHILS % 47.2 % (36.0-66.0); PLATELET COUNT, AUTOMATED 276 10^3/uL (150-450); RED BLOOD COUNT 3.57 10^6/uL (4.00-5.40); WHITE BLOOD COUNT 8.7 10^3/uL (4.0-10.0)
[2020-12-01 12:14] LABS: HEMOGLOBIN A1c 7.8 %
[2020-12-01 12:34] LABS: ALBUMIN 3.8 GM/DL (3.2-5.2); BILIRUBIN,TOTAL 0.4 MG/DL (0.2-1.0); CALCIUM LEVEL 9.9 MG/DL (8.8-10.2); CHOLESTEROL RISK RATIO 2.359 (<5); CREATININE FOR GFR 1.14 MG/DL (0.55-1.30); DIGOXIN LEVEL 0.5 NG/ML (0.5-2.0); GLOMERULAR FILTRATION RATE 48.8 (>32); POTASSIUM SERUM 4.9 MEQ/L (3.5-5.1); TOTAL PROTEIN 7.5 GM/DL (6.4-8.2)
== END ==
LOC: M SFHCPLAZ 08:37
PROVIDERS: ATTEND Physician Assistant Medical
DX: N18.30 Chronic kidney disease, stage 3 unspecified (principal); D50.9 Iron deficiency anemia, unspecified; I48.3 Typical atrial flutter; E78.2 Mixed hyperlipidemia; E11.8 Type 2 diabetes mellitus with unspecified complications

== ENCOUNTER → 2021-03-01 | Outpatient (CLI) | payer MEDICARE ==
--- NOTE | 2021-03-01 14:55 | REP ---
INDICATION: OTHER INTERVERTEBRAL DISC DEGENERATION, LUMBAR REGION. COMPARISON: None. TECHNIQUE: Five views FINDINGS: Osteoporosis. Narrowing L4-5 disc space. Normal alignment. No fractures. Facet arthropathy. Marked narrowing L4-5 disc space. Other disc spaces well maintained. Severe fecal impaction. IMPRESSION: Osteoporosis. Facet arthropathy. Narrowing L4-5 disc space. Normal alignment. No fractures. <Electronically signed by Corey Trejo > 03/01/21 [id number]
[2021-03-01 17:54] LABS: CALCIUM LEVEL 9.7 MG/DL (8.8-10.2); CREATININE FOR GFR 1.63 MG/DL (0.55-1.30); GLOMERULAR FILTRATION RATE 32.2 (>32); POTASSIUM SERUM 4.6 MEQ/L (3.5-5.1)
== END ==
LOC: M PLAIMG 14:12
PROVIDERS: ATTEND Physician Assistant Medical
DX: M81.0 Age-related osteoporosis without current pathological fracture (principal); M51.36 Other intervertebral disc degeneration, lumbar region; K56.41 Fecal impaction; N18.30 Chronic kidney disease, stage 3 unspecified
CPT/HCPCS: 36415; 72110; 80048; 83880; G0463

== ENCOUNTER → 2021-04-04 | Outpatient (CLI) | payer MEDICARE ==
[2021-04-04 15:51] LABS: ALBUMIN 3.7 GM/DL (3.2-5.2); BLOOD UREA NITROGEN 31 MG/DL (7-18); CALCIUM LEVEL 9.4 MG/DL (8.8-10.2); CARBON DIOXIDE LEVEL 30 MEQ/L (21-32); CHLORIDE LEVEL 104 MEQ/L (98-107); CK-MB VALUE MASS 9.6 NG/ML (<3.6); CPK CREATINE PHOSPHOKINASE 217 U/L (26-192); CREATININE FOR GFR 1.26 MG/DL (0.55-1.30); GLOMERULAR FILTRATION RATE 43.4 (>32); GLUCOSE, FASTING 187 MG/DL (70-100); MB/CK RELATIVE INDEX 4.42 (< OR =4); NT-PRO BNP 219 PG/ML (<450); PHOSPHORUS LEVEL 3.2 MG/DL (2.5-4.9); POTASSIUM SERUM 4.6 MEQ/L (3.5-5.1); SODIUM LEVEL 140 MEQ/L (136-145); TROPONIN I < 0.02 NG/ML (< 0.10)
[2021-04-04 16:41] LABS: HEMOGLOBIN A1c 8.2 %
--- NOTE | 2021-04-05 05:29 | REP ---
INDICATION: SHORTNESS OF BREATH COMPARISON: 04/01/2016 TECHNIQUE: PA and lateral. FINDINGS: Hyperinflation with advanced COPD/emphysematous changes again noted. No obvious acute consolidation, suspicious nodule or mass identified. Mediastinum and cardiac silhouette are within normal limits. Skeletal structures demonstrate age-related osteopenia and degenerative changes. IMPRESSION: Advanced COPD/emphysematous changes. No obvious acute process. If the patient remains symptomatic consider chest CT for further investigation. <Electronically signed by Manuel Davis > 04/05/21 0561
== END ==
LOC: M PLALAB 14:03 → M PLAIMG 14:03
PROVIDERS: ATTEND Physician Assistant Medical
DX: J44.9 Chronic obstructive pulmonary disease, unspecified (principal); E11.8 Type 2 diabetes mellitus with unspecified complications; R06.02 Shortness of breath; N18.30 Chronic kidney disease, stage 3 unspecified; B02.29 Other postherpetic nervous system involvement; B02.7 Disseminated zoster
CPT/HCPCS: 36415; 71046; 80069; 82550; 82553; 83036; 83880; 84484; 85379; G0463

== ENCOUNTER → 2021-08-28 | Outpatient (CLI) | payer OTHER ==
[2021-08-28 15:12] LABS: BASO # 0.1 10^3/uL (0.0-0.2); BASO % 0.7 % (0.0-1.0); EOS # 0.5 10^3/uL (0.0-0.5); EOS % 5.4 % (0.0-3.0); HEMATOCRIT 35.4 % (36.0-47.0); HEMOGLOBIN 11.2 g/dl (12.0-15.5); LYMPH % 30.2 % (24.0-44.0); MEAN CORPUSCULAR HEMOGLOBIN 31.4 pg (27.0-33.0); MEAN CORPUSCULAR HGB CONC 31.6 g/dl (32.0-36.5); MEAN CORPUSCULAR VOLUME 99.2 fl (80.0-96.0); MONO % 9.7 % (2.0-8.0); NEUTROPHILS # 5.3 10^3/uL (1.5-8.5); NEUTROPHILS % 53.7 % (36.0-66.0); PLATELET COUNT, AUTOMATED 262 10^3/uL (150-450); RED BLOOD COUNT 3.57 10^6/uL (4.00-5.40); WHITE BLOOD COUNT 9.8 10^3/uL (4.0-10.0)
[2021-08-28 15:49] LABS: ALBUMIN 3.7 GM/DL (3.2-5.2); BILIRUBIN,TOTAL 0.2 MG/DL (0.2-1.0); CHOLESTEROL RISK RATIO 2.476 (<5); CREATININE FOR GFR 1.26 MG/DL (0.55-1.30); FREE T4 1.47 NG/DL (0.76-1.46); GLOMERULAR FILTRATION RATE 43.4 (>32); POTASSIUM SERUM 4.5 MEQ/L (3.5-5.1); THYROID STIMULATING HORMONE 0.234 uIU/ML (0.358-3.740); TOTAL PROTEIN 7.3 GM/DL (6.4-8.2)
[2021-08-28 15:51] LABS: HEMOGLOBIN A1c 6.7 %
== END ==
LOC: M PLALAB 13:48
PROVIDERS: ATTEND Physician Assistant Medical
DX: E03.9 Hypothyroidism, unspecified (principal); E78.5 Hyperlipidemia, unspecified; E11.8 Type 2 diabetes mellitus with unspecified complications; N18.30 Chronic kidney disease, stage 3 unspecified; E11.22 Type 2 diabetes mellitus with diabetic chronic kidney disease; R06.02 Shortness of breath

== ENCOUNTER → 2021-09-25 | Outpatient (CLI) | payer OTHER ==
[~2021-09-25] MED LIST changes: +ISOVUE-370 76% 100ML VIAL As Ordered ONE
== END ==
LOC: M RAD 12:35
PROVIDERS: ATTEND Physician Assistant Medical
DX: R06.02 Shortness of breath (principal); R79.89 Other specified abnormal findings of blood chemistry; J43.9 Emphysema, unspecified; M85.89 Other specified disorders of bone density and structure, multiple sites; D35.02 Benign neoplasm of left adrenal gland
CPT/HCPCS: 71275; Q9967

== ENCOUNTER → 2021-09-25 | Outpatient (CLI) | payer OTHER ==
[~2021-09-25] MED LIST changes: -ISOVUE-370 76% 100ML VIAL As Ordered ONE
== END ==
LOC: M WHC 13:20
PROVIDERS: ATTEND Physician Assistant Medical
DX: M81.0 Age-related osteoporosis without current pathological fracture (principal); Z53.9 Procedure and treatment not carried out, unspecified reason

== ENCOUNTER → 2021-12-29 | Outpatient (CLI) | payer OTHER | LOC: M WHC 12:39 | PROVIDERS: ATTEND Physician Assistant Medical | DX: M81.0 Age-related osteoporosis without current pathological fracture (principal); M85.88 Other specified disorders of bone density and structure, other site ==

== ENCOUNTER → 2022-01-03 | Outpatient (CLI) | payer OTHER ==
[2022-01-03 16:24] LABS: BASO # 0.1 10^3/uL (0.0-0.2); BASO % 1.1 % (0.0-1.0); EOS # 0.4 10^3/uL (0.0-0.5); EOS % 4.3 % (0.0-3.0); HEMATOCRIT 38.3 % (36.0-47.0); HEMOGLOBIN 11.8 g/dl (12.0-15.5); LYMPH # 3.4 10^3/uL (1.5-5.0); LYMPH % 36.6 % (24.0-44.0); MEAN CORPUSCULAR HEMOGLOBIN 30.9 pg (27.0-33.0); MEAN CORPUSCULAR HGB CONC 30.8 g/dl (32.0-36.5); MEAN CORPUSCULAR VOLUME 100.3 fl (80.0-96.0); MONO # 0.8 10^3/uL (0.0-0.8); MONO % 8.6 % (2.0-8.0); NEUTROPHILS # 4.5 10^3/uL (1.5-8.5); NEUTROPHILS % 48.7 % (36.0-66.0); PLATELET COUNT, AUTOMATED 276 10^3/uL (150-450); RED BLOOD COUNT 3.82 10^6/uL (4.00-5.40); WHITE BLOOD COUNT 9.2 10^3/uL (4.0-10.0)
[2022-01-03 16:43] LABS: HEMOGLOBIN A1c 7.5 %
[2022-01-03 17:03] LABS: ALBUMIN 3.6 GM/DL (3.2-5.2); ALT/SGPT 35 U/L (12-78); BILIRUBIN,TOTAL 0.3 MG/DL (0.2-1.0); BLOOD UREA NITROGEN 33 MG/DL (7-18); CALCIUM LEVEL 8.8 MG/DL (8.8-10.2); CARBON DIOXIDE LEVEL 26 MEQ/L (21-32); CHLORIDE LEVEL 112 MEQ/L (98-107); CREATININE FOR GFR 1.28 MG/DL (0.55-1.30); FERRITIN 70 NG/ML (8-252); FREE T4 1.41 NG/DL (0.76-1.46); GLOMERULAR FILTRATION RATE 42.6 (>32); GLUCOSE, FASTING 112 MG/DL (70-100); MAGNESIUM LEVEL 2.1 MG/DL (1.8-2.4); NT-PRO BNP 343 PG/ML (<450); POTASSIUM SERUM 5.9 MEQ/L (3.5-5.1); SODIUM LEVEL 142 MEQ/L (136-145); TOTAL PROTEIN 7.5 GM/DL (6.4-8.2)
[2022-01-03 17:06] LABS: PTH INTACT 138.7 PG/ML (18.5-88.0); THYROID PEROXIDASE ANTIBODY > 1300.0 U/ML (<60.0)
[2022-01-04 12:21] LABS: ALBUMIN 4.17 GM/DL (3.29-5.55); ALBUMIN % 55.6 % (55.8-66.1); ALPHA-1-GLOBULIN % 4.3 % (2.9-4.9); ALPHA-1-GLOBULINS 0.32 GM/DL (0.17-0.41); ALPHA-2-GLOBULINS 0.77 GM/DL (0.42-0.99); ALPHA-2-GLOBULINS % 10.2 % (7.1-11.8); BETA-1-GLOBULINS % 6.6 % (4.7-7.2); BETA-2-GLOBULINS 0.49 GM/DL (0.19-0.55); BETA-2-GLOBULINS % 6.5 % (3.2-6.5); GAMMA GLOBULIN % 16.8 % (11.1-18.8); GAMMA GLOBULINS 1.26 GM/DL (0.65-1.58)
== END ==
LOC: M PLALAB 12:12
PROVIDERS: ATTEND Family Medicine
DX: D75.89 Other specified diseases of blood and blood-forming organs (principal); I10 Essential (primary) hypertension; E11.8 Type 2 diabetes mellitus with unspecified complications; E55.9 Vitamin D deficiency, unspecified; E03.9 Hypothyroidism, unspecified

== ENCOUNTER → 2022-01-05 | Outpatient (CLI) | payer OTHER ==
[2022-01-05 12:03] LABS: ALBUMIN 3.6 GM/DL (3.2-5.2); CREATININE FOR GFR 1.23 MG/DL (0.55-1.30); DIGOXIN LEVEL 1.5 NG/ML (0.5-2.0); GLOMERULAR FILTRATION RATE 44.6 (>32); MAGNESIUM LEVEL 2.1 MG/DL (1.8-2.4); PHOSPHORUS LEVEL 3.2 MG/DL (2.5-4.9)
== END ==
LOC: M PLALAB 10:37
PROVIDERS: ATTEND Family Medicine
DX: I10 Essential (primary) hypertension (principal)

== ENCOUNTER → 2022-04-30 | Outpatient (CLI) | payer OTHER ==
[~2022-04-30] MED LIST changes: +ALEN70TA87 PO; -FOSA70TA PO
== END ==
LOC: M WHC 07:43
PROVIDERS: ATTEND Physician Assistant Medical
DX: R10.30 Lower abdominal pain, unspecified (principal); R53.81 Other malaise; M62.838 Other muscle spasm; R10.10 Upper abdominal pain, unspecified; N28.1 Cyst of kidney, acquired; D25.9 Leiomyoma of uterus, unspecified

== ENCOUNTER 2022-08-12 19:05 | Emergency (ER) | payer MEDICARE, OTHER ==
[~2022-08-12] VITALS: Ht 170.2 cm; Wt 60.8 kg
[2022-08-12 19:40] LABS: BASO # 0.1 10^3/uL (0.0-0.2); BASO % 0.9 % (0.0-1.0); EOS # 0.4 10^3/uL (0.0-0.5); EOS % 3.5 % (0.0-3.0); HEMATOCRIT 38.3 % (36.0-47.0); HEMOGLOBIN 12.2 g/dl (12.0-15.5); LYMPH # 3.8 10^3/uL (1.5-5.0); LYMPH % 36.8 % (24.0-44.0); MEAN CORPUSCULAR HEMOGLOBIN 31.4 pg (27.0-33.0); MEAN CORPUSCULAR HGB CONC 31.9 g/dl (32.0-36.5); MEAN CORPUSCULAR VOLUME 98.7 fl (80.0-96.0); MONO # 0.9 10^3/uL (0.0-0.8); MONO % 8.4 % (2.0-8.0); NEUTROPHILS # 5.2 10^3/uL (1.5-8.5); PLATELET COUNT, AUTOMATED 284 10^3/uL (150-450); RED BLOOD COUNT 3.88 10^6/uL (4.00-5.40); WHITE BLOOD COUNT 10.3 10^3/uL (4.0-10.0)
[2022-08-12 19:54] LABS: INR 0.91; PROTHROMBIN TIME 12.4 SECONDS (12.5-14.5)
[2022-08-12 20:00] LABS: ALBUMIN 4.1 G/DL (3.2-5.2); BILIRUBIN,DIRECT 0.1 MG/DL (<0.4); BILIRUBIN,TOTAL 0.3 MG/DL (0.3-1.2); CALCIUM LEVEL 9.4 MG/DL (8.3-10.6); CREATININE FOR GFR 1.26 MG/DL (0.55-1.30); GLOMERULAR FILTRATION RATE 43.3 (>32); MB/CK RELATIVE INDEX 3.57 (< OR =4); POTASSIUM SERUM 4.4 MMOL/L (3.5-5.1); TOTAL PROTEIN 7.4 G/DL (5.7-8.2)
[2022-08-12 20:02] LABS: THYROID STIMULATING HORMONE 0.861 uIU/ML (0.55-4.78)
[2022-08-12 20:05] LABS: RSV AMPLIFICATION NEGATIVE (NEGATIVE)
[2022-08-12 20:10] LABS: MAGNESIUM LEVEL 1.9 MG/DL (1.8-2.4)
[2022-08-12 20:11] LABS: DIGOXIN LEVEL 0.4 NG/ML (0.8-2.0)
[2022-08-12 20:19] VITALS: BP 124/69
[2022-08-12 20:56] LABS: CK-MB VALUE MASS 6.9 NG/ML (<3.6)
[2022-08-12 20:57] LABS: MB/CK RELATIVE INDEX 3.61 (< OR =4)
[2022-08-12] MEDS ORDERED: DIGOXIN INJ 0.5 MG/2 ML AMP IV ONE (21:10)
== END 2022-08-12 22:57 | disposition home or self-care (01) ==
LOC: M ED 19:05
DX: R00.2 Palpitations (principal); R89.2 Abnormal level of other drugs, medicaments and biological substances in specimens from other organs, systems and tissues; I48.91 Unspecified atrial fibrillation; I25.10 Atherosclerotic heart disease of native coronary artery without angina pectoris; I35.9 Nonrheumatic aortic valve disorder, unspecified; E11.9 Type 2 diabetes mellitus without complications; E07.9 Disorder of thyroid, unspecified; Z82.49 Family history of ischemic heart disease and other diseases of the circulatory system; Z79.82 Long term (current) use of aspirin; Z79.890 Hormone replacement therapy; Z79.899 Other long term (current) drug therapy
CPT/HCPCS: 36415; 71045; 80047; 80048; 80076; 80162; 82550; 82553; 83690; 83735; 84443; 84484; 85025; 85610; 87631; 93005; 93041; 94760; 96374; 99285; J1160

== ENCOUNTER → 2022-08-21 | Outpatient (CLI) | payer MEDICARE | LOC: M PLAIMG 10:59 | PROVIDERS: ATTEND Physician Assistant Medical | DX: R10.30 Lower abdominal pain, unspecified (principal); K57.30 Diverticulosis of large intestine without perforation or abscess without bleeding; N21.0 Calculus in bladder; D35.02 Benign neoplasm of left adrenal gland; N28.89 Other specified disorders of kidney and ureter ==

== ENCOUNTER → 2022-12-13 | Outpatient (CLI) | payer MEDICARE ==
[2022-12-13 16:02] LABS: BASO # 0.1 10^3/uL (0.0-0.2); BASO % 0.8 % (0.0-1.0); EOS # 0.3 10^3/uL (0.0-0.5); EOS % 2.5 % (0.0-3.0); HEMATOCRIT 39.3 % (36.0-47.0); HEMOGLOBIN 12.1 g/dl (12.0-15.5); LYMPH % 28.1 % (24.0-44.0); MEAN CORPUSCULAR HEMOGLOBIN 31.3 pg (27.0-33.0); MEAN CORPUSCULAR HGB CONC 30.8 g/dl (32.0-36.5); MEAN CORPUSCULAR VOLUME 101.8 fl (80.0-96.0); MONO # 0.9 10^3/uL (0.0-0.8); MONO % 8.1 % (2.0-8.0); NEUTROPHILS # 6.4 10^3/uL (1.5-8.5); NEUTROPHILS % 60.1 % (36.0-66.0); PLATELET COUNT, AUTOMATED 290 10^3/uL (150-450); RED BLOOD COUNT 3.86 10^6/uL (4.00-5.40); WHITE BLOOD COUNT 10.6 10^3/uL (4.0-10.0)
[2022-12-13 16:26] LABS: ALBUMIN 4.1 G/DL (3.2-5.2); BILIRUBIN,TOTAL 0.3 MG/DL (0.3-1.2); CALCIUM LEVEL 9.9 MG/DL (8.3-10.6); CREATININE FOR GFR 1.47 MG/DL (0.55-1.30); GLOMERULAR FILTRATION RATE 36.2 (>32); TOTAL PROTEIN 7.5 G/DL (5.7-8.2)
== END ==
LOC: M PLALAB 13:58
PROVIDERS: ATTEND Physician Assistant Medical
DX: K59.00 Constipation, unspecified (principal); R10.10 Upper abdominal pain, unspecified; R14.0 Abdominal distension (gaseous); I11.0 Hypertensive heart disease with heart failure; I48.0 Paroxysmal atrial fibrillation; I50.32 Chronic diastolic (congestive) heart failure

== ENCOUNTER → 2022-12-13 | Outpatient (REF) | payer MEDICARE | LOC: M SFHCPLAZ 13:41 | PROVIDERS: ATTEND Physician Assistant Medical | DX: R10.10 Upper abdominal pain, unspecified (principal); I11.0 Hypertensive heart disease with heart failure; I48.0 Paroxysmal atrial fibrillation; I50.32 Chronic diastolic (congestive) heart failure; R14.0 Abdominal distension (gaseous) ==

== ENCOUNTER → 2023-03-11 | Outpatient (CLI) | payer MEDICARE ==
[2023-03-11 17:44] LABS: BASO # 0.1 10^3/uL (0.0-0.2); BASO % 0.9 % (0.0-1.0); EOS # 0.3 10^3/uL (0.0-0.5); EOS % 2.7 % (0.0-3.0); HEMATOCRIT 36.3 % (36.0-47.0); HEMOGLOBIN 11.4 g/dl (12.0-15.5); LYMPH # 3.2 10^3/uL (1.5-5.0); LYMPH % 34.8 % (24.0-44.0); MEAN CORPUSCULAR HEMOGLOBIN 31.8 pg (27.0-33.0); MEAN CORPUSCULAR HGB CONC 31.4 g/dl (32.0-36.5); MEAN CORPUSCULAR VOLUME 101.4 fl (80.0-96.0); MONO # 0.7 10^3/uL (0.0-0.8); NEUTROPHILS # 4.9 10^3/uL (1.5-8.5); NEUTROPHILS % 53.3 % (36.0-66.0); PLATELET COUNT, AUTOMATED 283 10^3/uL (150-450); RED BLOOD COUNT 3.58 10^6/uL (4.00-5.40); WHITE BLOOD COUNT 9.1 10^3/uL (4.0-10.0)
[2023-03-11 18:00] LABS: HEMOGLOBIN A1c 8.1 % (4.0-6.0)
[2023-03-11 18:15] LABS: CHOLESTEROL RISK RATIO 3.09 (<5); FREE T4 1.32 NG/DL (0.89-1.76); HDL CHOLESTEROL 55.3 MG/DL (>40); LDL CHOLESTEROL 77.9 MG/DL (<100); NON-HDL-C 115.7 MG/DL; THYROID STIMULATING HORMONE 7.818 uIU/ML (0.55-4.78)
== END ==
LOC: M PLALAB 15:30
PROVIDERS: ATTEND Physician Assistant Medical
DX: E11.8 Type 2 diabetes mellitus with unspecified complications (principal); I50.32 Chronic diastolic (congestive) heart failure; I11.0 Hypertensive heart disease with heart failure; D50.9 Iron deficiency anemia, unspecified; E78.5 Hyperlipidemia, unspecified; E03.9 Hypothyroidism, unspecified

== ENCOUNTER 2023-09-26 09:08 | Emergency (ER) | payer MEDICARE ==
[~2023-09-26] VITALS: Ht 170.2 cm; Wt 56.4 kg
[2023-09-26] MEDS ORDERED: GLIM4TAB5 (09:32)
[2023-09-26] MEDS ORDERED: DIGO0.123 (09:32)
[2023-09-26] MEDS ORDERED: LOVA20TA2 (09:32)
[2023-09-26 09:41] VITALS: TEMP 97.2
[2023-09-26] MEDS: ACETAMINOPHEN 500 MG TAB PO ONE (10:50)
[2023-09-26 11:08] VITALS: O2SAT 95
[2023-09-26 11:15] VITALS: BP 166/78
== END 2023-09-26 11:38 | disposition home or self-care (01) ==
LOC: M ED 09:08 → EDBD 09:08 → M ED 11:38
DX: M54.50 Low back pain, unspecified (principal); U07.1 COVID-19; W06.XXXA Fall from bed, initial encounter; Y92.009 Unspecified place in unspecified non-institutional (private) residence as the place of occurrence of the external cause; Y93.9 Activity, unspecified; Y99.9 Unspecified external cause status; M51.36 Other intervertebral disc degeneration, lumbar region; E11.319 Type 2 diabetes mellitus with unspecified diabetic retinopathy without macular edema; I10 Essential (primary) hypertension; E78.5 Hyperlipidemia, unspecified; Z79.82 Long term (current) use of aspirin; Z79.899 Other long term (current) drug therapy; Z88.8 Allergy status to other drugs, medicaments and biological substances

== ENCOUNTER 2023-12-01 13:53 | Emergency (ER) | payer MEDICARE ==
[~2023-12-01 13:53] MED LIST changes: +DIGO0.123; +GLIM4TAB5; +LOVA20TA2
[2023-12-01] MEDS: LIDOCAINE 5% (LIDODERM) PATCH TD ONE (15:49)
[2023-12-01] MEDS: ACETAMINOPHEN 500 MG TAB PO ONE (15:49)
[2023-12-01] MEDS ORDERED: LIDO5DIS41 TD (16:44)
[2023-12-01 17:41] VITALS: BP 138/62; TEMP 98.4; O2SAT 96
== END 2023-12-01 18:01 | disposition home or self-care (01) ==
LOC: EDBD 13:53 → M ED 13:53
DX: M54.50 Low back pain, unspecified (principal); M85.88 Other specified disorders of bone density and structure, other site; W19.XXXA Unspecified fall, initial encounter; Y92.9 Unspecified place or not applicable; Y93.9 Activity, unspecified; Y99.9 Unspecified external cause status; Z88.8 Allergy status to other drugs, medicaments and biological substances; Z79.899 Other long term (current) drug therapy; Z79.1 Long term (current) use of non-steroidal anti-inflammatories (NSAID); Z79.84 Long term (current) use of oral hypoglycemic drugs

== ENCOUNTER → 2024-01-02 | Outpatient (REF) | payer MEDICARE ==
[~2024-01-02] MED LIST changes: +LIDO5DIS41 TD
[2024-01-02 18:41] LABS: CREATININE, URINE 190.4 MG/DL; MAU/CREAT RATIO 108.1 MCG/MG (0.0-30.0)
[2024-01-02 19:39] LABS: ALBUMIN 3.9 G/DL (3.2-5.2); ALKALINE PHOSPHATASE 167 U/L (46-116); ALT/SGPT 49 U/L (7.0-40); AST/SGOT 32 U/L (<34); BILIRUBIN,TOTAL 0.4 MG/DL (0.3-1.2); BLOOD UREA NITROGEN 31 MG/DL (9-23); CALCIUM LEVEL 9.9 MG/DL (8.3-10.6); CARBON DIOXIDE LEVEL 25 MMOL/L (20-31); CHLORIDE LEVEL 110 MMOL/L (98-107); CHOLESTEROL LEVEL 237 MG/DL (<200); CHOLESTEROL RISK RATIO 3.16 (<5); CREATININE FOR GFR 1.25 MG/DL (0.55-1.30); GLOMERULAR FILTRATION RATE > 60.0 (>32); GLUCOSE, FASTING 156 MG/DL (74-106); LDL CHOLESTEROL 132.6 MG/DL (<100); POTASSIUM SERUM 4.6 MMOL/L (3.5-5.1); SODIUM LEVEL 142 MMOL/L (136-145); TOTAL PROTEIN 7.6 G/DL (5.7-8.2); TRIGLYCERIDES LEVEL 147 MG/DL (<150)
[2024-01-02 19:43] LABS: HEMOGLOBIN A1c 7.6 % (4.0-6.0); TOTAL 25(OH) VITAMIN D 24.7 NG/ML (20.0-100.0)
[2024-01-02 19:45] LABS: FOLATE 20.9 NG/ML (>5.4)
[2024-01-02 19:46] LABS: VITAMIN B12 LEVEL 406 PG/ML (211-911)
== END ==
LOC: M LAB REF 17:36
PROVIDERS: ATTEND Physician Assistant
DX: E11.9 Type 2 diabetes mellitus without complications (principal); E55.9 Vitamin D deficiency, unspecified; E78.5 Hyperlipidemia, unspecified; E03.9 Hypothyroidism, unspecified; E53.8 Deficiency of other specified B group vitamins

== ENCOUNTER 2024-01-22 18:27 | Emergency (ER) | payer MEDICARE ==
[~2024-01-22] VITALS: Ht 170.2 cm; Wt 55.9 kg
[2024-01-22 19:15] LABS: BASO # 0.1 10^3/uL (0.0-0.2); EOS # 0.4 10^3/uL (0.0-0.5); EOS % 4.3 % (0.0-3.0); HEMATOCRIT 32.6 % (36.0-47.0); HEMOGLOBIN 10.3 g/dl (12.0-15.5); LYMPH # 3.1 10^3/uL (1.5-5.0); MEAN CORPUSCULAR HGB CONC 31.6 g/dl (32.0-36.5); MEAN CORPUSCULAR VOLUME 101.2 fl (80.0-96.0); MONO # 0.9 10^3/uL (0.0-0.8); NEUTROPHILS # 4.5 10^3/uL (1.5-8.5); NEUTROPHILS % 50.5 % (36.0-66.0); PLATELET COUNT, AUTOMATED 244 10^3/uL (150-450); RED BLOOD COUNT 3.22 10^6/uL (4.00-5.40)
[2024-01-22 19:29] LABS: INR 1.03; PARTIAL THROMBOPLASTIN TIME 26.7 SECONDS (24.8-34.2); PROTHROMBIN TIME 13.2 SECONDS (12.5-14.5)
[2024-01-22 19:41] LABS: CREATININE FOR GFR 1.16 MG/DL (0.55-1.30); GLOMERULAR FILTRATION RATE 47.5 (>32); POTASSIUM SERUM 4.8 MMOL/L (3.5-5.1)
[2024-01-22] MEDS: traMADol 50 MG TAB PO ONE (20:30)
[2024-01-22] MEDS: traMADol 50 MG TAB (HOME DOSE PACK) PO ONE (22:20)
[2024-01-22] MEDS ORDERED: TRAM50TA2 PO (22:24)
[2024-01-22 22:45] VITALS: BP 164/77; TEMP 97.1; O2SAT 100
[2024-01-23] MEDS ORDERED: CEFD1CAP9 PO (13:18)
== END 2024-01-22 23:00 | disposition home or self-care (01) ==
LOC: EDBD 18:27 → M ED 18:27
DX: M79.652 Pain in left thigh (principal); E11.51 Type 2 diabetes mellitus with diabetic peripheral angiopathy without gangrene; E78.5 Hyperlipidemia, unspecified

== ENCOUNTER 2024-02-23 11:41 | Emergency (ER) | payer MEDICARE ==
[~2024-02-23] VITALS: Ht 170.2 cm; Wt 55.0 kg
[~2024-02-23 11:41] MED LIST changes: +CEFD1CAP9 PO; +TRAM50TA2 PO
[2024-02-23 15:00] VITALS: BP 130/78; TEMP 97.4; O2SAT 98
== END 2024-02-23 15:22 | disposition home or self-care (01) ==
LOC: M ED 11:41
DX: M17.12 Unilateral primary osteoarthritis, left knee (principal); I25.10 Atherosclerotic heart disease of native coronary artery without angina pectoris; E11.9 Type 2 diabetes mellitus without complications; I10 Essential (primary) hypertension; E03.9 Hypothyroidism, unspecified; D64.9 Anemia, unspecified; Z79.82 Long term (current) use of aspirin; Z79.4 Long term (current) use of insulin; Z79.899 Other long term (current) drug therapy; Z88.8 Allergy status to other drugs, medicaments and biological substances

== ENCOUNTER → 2024-03-02 | Outpatient (CLI) | payer MEDICARE | LOC: M WHC 10:58 | PROVIDERS: ATTEND Physician Assistant | DX: Z13.820 Encounter for screening for osteoporosis (principal); M85.89 Other specified disorders of bone density and structure, multiple sites; M81.0 Age-related osteoporosis without current pathological fracture ==

== ENCOUNTER → 2024-05-20 | Outpatient (REF) | payer MEDICARE ==
[2024-05-20 14:10] LABS: APPEARANCE, URINE CLOUDY (CLEAR); BACTERIA, URINE AUTO 3+ (NEGATIVE); BILIRUBIN, URINE AUTO NEGATIVE (NEGATIVE); BLOOD, URINE BLOOD 1+ (NEGATIVE); COLOR, URINE YELLOW (YELLOW); GLUCOSE, URINE (UA) AUTO 3+ mg/dL (NEGATIVE); KETONE, URINE AUTO NEGATIVE (NEGATIVE); LEUKOCYTE ESTERASE, URINE AUTO 3+ (NEGATIVE); NITRITE, URINE AUTO NEGATIVE (NEGATIVE); PROTEIN, URINE AUTO NEGATIVE (NEGATIVE); RBC, URINE AUTO 7 /HPF (0-3); SPECIFIC GRAVITY URINE AUTO 1.027 (1.002-1.035); SQUAMOUS EPITHELIAL CELL UR AU 2 /HPF (0-6); UROBILINOGEN, URINE AUTO 0.2 mg/dL (0.0-2.0); WBC, URINE AUTO 73 /HPF (0-3)
[2024-05-20 18:49] LABS: BASO # 0.1 10^3/uL (0.0-0.2); BASO % 0.9 % (0.0-1.0); EOS # 0.3 10^3/uL (0.0-0.5); EOS % 3.2 % (0.0-3.0); HEMATOCRIT 36.6 % (36.0-47.0); HEMOGLOBIN 11.5 g/dl (12.0-15.5); LYMPH % 37.3 % (24.0-44.0); MEAN CORPUSCULAR HEMOGLOBIN 31.8 pg (27.0-33.0); MEAN CORPUSCULAR HGB CONC 31.4 g/dl (32.0-36.5); MEAN CORPUSCULAR VOLUME 101.1 fl (80.0-96.0); MONO # 0.7 10^3/uL (0.0-0.8); MONO % 8.6 % (2.0-8.0); NEUTROPHILS % 49.5 % (36.0-66.0); PLATELET COUNT, AUTOMATED 282 10^3/uL (150-450); RED BLOOD COUNT 3.62 10^6/uL (4.00-5.40); WHITE BLOOD COUNT 8.1 10^3/uL (4.0-10.0)
[2024-05-20 19:21] LABS: CALCIUM LEVEL 9.4 MG/DL (8.3-10.6); CREATININE FOR GFR 1.24 MG/DL (0.55-1.30); GLOMERULAR FILTRATION RATE 43.9 (>32); POTASSIUM SERUM 5.2 MMOL/L (3.5-5.1)
[2024-05-20 19:24] LABS: THYROID STIMULATING HORMONE 0.172 uIU/ML (0.55-4.78)
== END ==
LOC: M LAB REF 11:31
PROVIDERS: ATTEND Physician Assistant
DX: R53.1 Weakness (principal); I50.32 Chronic diastolic (congestive) heart failure

== ENCOUNTER → 2024-09-24 | Outpatient (REF) | payer MEDICARE ==
[2024-09-24 18:55] LABS: ALBUMIN 3.6 G/DL (3.2-5.2); BILIRUBIN,TOTAL 0.2 MG/DL (0.3-1.2); CREATININE FOR GFR 1.06 MG/DL (0.55-1.30); GLOMERULAR FILTRATION RATE 52.6 (>32); POTASSIUM SERUM 4.5 MMOL/L (3.5-5.1); TOTAL PROTEIN 7.2 G/DL (5.7-8.2)
[2024-09-24 18:56] LABS: FREE T4 0.73 NG/DL (0.89-1.76); THYROID STIMULATING HORMONE 91.662 uIU/ML (0.55-4.78)
[2024-09-24 19:38] LABS: HEMOGLOBIN A1c 7.7 % (4.0-6.0)
== END ==
LOC: M LAB REF 12:21
PROVIDERS: ATTEND Physician Assistant
DX: E03.9 Hypothyroidism, unspecified (principal); E11.9 Type 2 diabetes mellitus without complications; R35.89 Other polyuria

== ENCOUNTER → 2024-10-16 | Outpatient (CLI) | payer MEDICARE ==
[~2024-10-16] MED LIST changes: +DENO60SY2 SC; -PROL60SO SC
== END ==
LOC: M RAD 13:38
PROVIDERS: ATTEND Physician Assistant
DX: R10.30 Lower abdominal pain, unspecified (principal); N85.8 Other specified noninflammatory disorders of uterus

== ENCOUNTER → 2024-10-29 | Outpatient (REF) | payer MEDICARE ==
[2024-10-29 18:48] LABS: THYROID STIMULATING HORMONE 0.251 uIU/ML (0.55-4.78)
[2024-10-29 18:49] LABS: FREE T4 2.32 NG/DL (0.89-1.76)
== END ==
LOC: M LAB REF 17:31
PROVIDERS: ATTEND Physician Assistant
DX: E03.9 Hypothyroidism, unspecified (principal)

== ENCOUNTER → 2024-11-10 | Outpatient (REF) | payer MEDICARE ==
[2024-11-10 19:14] LABS: FOLATE 17.9 NG/ML (>5.4)
== END ==
LOC: M LAB REF 17:04
PROVIDERS: ATTEND Physician Assistant
DX: E53.8 Deficiency of other specified B group vitamins (principal)

== ENCOUNTER 2025-01-19 15:05 | Emergency (ER) | payer MEDICARE ==
[~2025-01-19] VITALS: Ht 170.2 cm; Wt 48.7 kg
[~2025-01-19 15:05] MED LIST changes: +LIDO1ADH93 TD; -LIDO5DIS41 TD; +PRAV10TA PO; -PRAV10TA4 PO; -PRAV40TA2 PO; +PRAV40TA85 PO
[2025-01-19 15:40] LABS: BASO # 0.1 10^3/uL (0.0-0.2); BASO % 0.7 % (0.0-1.0); EOS # 0.1 10^3/uL (0.0-0.5); EOS % 1.4 % (0.0-3.0); LYMPH # 2.3 10^3/uL (1.5-5.0); LYMPH % 27.0 % (24.0-44.0); MONO # 0.9 10^3/uL (0.0-0.8); MONO % 10.8 % (2.0-8.0); NEUTROPHILS # 5.0 10^3/uL (1.5-8.5); NEUTROPHILS % 60.0 % (36.0-66.0); PLATELET COUNT, AUTOMATED 270 10^3/uL (150-450)
[2025-01-19] MEDS ORDERED: HOLTER MONITOR XX (16:04)
[2025-01-19 16:12] LABS: ALT/SGPT 39.0 U/L (7.0-40); AST/SGOT 35.0 U/L (<34); CALCIUM LEVEL 9.3 MG/DL (8.3-10.6); CARBON DIOXIDE LEVEL 25.0 MMOL/L (20-31); CHLORIDE LEVEL 109.0 MMOL/L (98-107); CREATININE FOR GFR 1.21 MG/DL (0.55-1.30); GLOMERULAR FILTRATION RATE 44.2 (>32); POTASSIUM SERUM 4.6 MMOL/L (3.5-5.1); SODIUM LEVEL 150.0 MMOL/L (136-145)
[2025-01-19 16:14] LABS: THYROXINE (T4) 8.5 UG/DL (4.5-10.9)
[2025-01-19 16:23] LABS: T UPTAKE 45.5 % (22.5-37.0)
[2025-01-19 17:06] VITALS: BP 129/66; TEMP 96; O2SAT 98
== END 2025-01-19 17:17 | disposition home or self-care (01) ==
LOC: M ED 15:05 → EDBD 15:05 → M ED 17:17
DX: R00.2 Palpitations (principal); I48.91 Unspecified atrial fibrillation; I10 Essential (primary) hypertension; E11.9 Type 2 diabetes mellitus without complications; E07.9 Disorder of thyroid, unspecified; Z79.82 Long term (current) use of aspirin; Z79.84 Long term (current) use of oral hypoglycemic drugs; Z79.899 Other long term (current) drug therapy; Z88.8 Allergy status to other drugs, medicaments and biological substances

== ENCOUNTER → 2025-01-20 | Outpatient (REF) | payer MEDICARE ==
[~2025-01-20] MED LIST changes: +HOLTER MONITOR XX
[2025-01-20 18:32] LABS: IRON (FE) 72.0 UG/DL (50-170); PERCENT SATURATION 22.9 % (13.2-45.0)
[2025-01-20 19:41] LABS: BASO # 0.1 10^3/uL (0.0-0.2); BASO % 1.1 % (0.0-1.0); EOS # 0.2 10^3/uL (0.0-0.5); EOS % 2.7 % (0.0-3.0); LYMPH # 2.9 10^3/uL (1.5-5.0); LYMPH % 41.6 % (24.0-44.0); MONO # 0.6 10^3/uL (0.0-0.8); MONO % 8.7 % (2.0-8.0); NEUTROPHILS # 3.2 10^3/uL (1.5-8.5); NEUTROPHILS % 45.8 % (36.0-66.0); PLATELET COUNT, AUTOMATED 297 10^3/uL (150-450)
== END ==
LOC: M LAB REF 17:17
PROVIDERS: ATTEND Physician Assistant
DX: D50.9 Iron deficiency anemia, unspecified (principal)

== ENCOUNTER 2025-03-15 16:52 | Inpatient (IN) | payer MEDICARE ==
[~2025-03-15] VITALS: Ht 170.2 cm; Wt 50.2 kg
[~2025-03-15 16:52] MED LIST changes: -DIGO0.123; +DIGO0.123 PO
[2025-03-15 17:45] LABS: BASO # 0.1 10^3/uL (0.0-0.2); BASO % 0.6 % (0.0-1.0); EOS # 0.2 10^3/uL (0.0-0.5); EOS % 2.0 % (0.0-3.0); LYMPH # 1.2 10^3/uL (1.5-5.0); LYMPH % 14.5 % (24.0-44.0); MONO # 0.7 10^3/uL (0.0-0.8); MONO % 8.1 % (2.0-8.0); NEUTROPHILS # 6.1 10^3/uL (1.5-8.5); NEUTROPHILS % 74.6 % (36.0-66.0); PLATELET COUNT, AUTOMATED 267 10^3/uL (150-450)
[2025-03-15 17:47] LABS: VENOUS BASE EXCESS -5.9 (-2.0-2.0); VENOUS HCO3 19.9 MMOL/L (23.0-27.0); VENOUS O2 SATURATION 62.2 % (60.0-80.0); VENOUS PARTIAL PRESSURE CO2 40.5 mmHg (38.0-50.0); VENOUS PARTIAL PRESSURE O2 34.5 mmHg (30.0-50.0); VENOUS PH 7.310 UNITS (7.330-7.430); VENOUS STANDARD HCO3 19.0 MMOL/L; VENOUS TOTAL CO2 21.2 MMOL/L (24.0-28.0)
[2025-03-15 18:01] LABS: ALT/SGPT 45 U/L (7.0-40); AST/SGOT 43 U/L (<34)
[2025-03-15 18:04] LABS: FREE T4 0.33 NG/DL (0.89-1.76)
[2025-03-15] MEDS: NS (Normal Saline) 0.9% 1,000 ML IV ONE (18:10)
[2025-03-15 18:16] LABS: ACETONE/KETONE 0.12 MMOL/L (0.02-0.27); DIGOXIN LEVEL 0.2 NG/ML (0.8-2.0); OSMOLALITY SERUM 326 MOSM/KG (280-301)
[2025-03-15 18:38] LABS: ESTIMATED AVERAGE GLUCOSE 232.0 MG/DL (60-110)
[2025-03-15 22:55] VITALS: BP 183/77
[2025-03-15] MEDS: amLODIPine 5 MG TAB PO ONE (22:55)
[2025-03-16] VITALS (7 sets, daily range): BP systolic 133–174; BP diastolic 60–74; TEMP 97.3–98; O2SAT 92–98
[2025-03-16 00:27] LABS: CALCIUM LEVEL 5.5 MG/DL (8.3-10.6); CARBON DIOXIDE LEVEL 18.0 MMOL/L (20-31); CHLORIDE LEVEL 121.0 MMOL/L (98-107); CREATININE FOR GFR 0.76 MG/DL (0.55-1.30); GLOMERULAR FILTRATION RATE 76.7 (>32); POTASSIUM SERUM 3.0 MMOL/L (3.5-5.1); SODIUM LEVEL 149.0 MMOL/L (136-145)
[2025-03-16 00:53] LABS: MAGNESIUM LEVEL 1.2 MG/DL (1.8-2.4)
[2025-03-16] MEDS ORDERED: ISOVUE-370 76% 100 ML VIAL As Ordered ONE (01:12)
[2025-03-16 01:13] LABS: KETONE, URINE AUTO RFX NEGATIVE (NEGATIVE); NITRITE, URINE AUTO RFX NEGATIVE (NEGATIVE); RBC, URINE AUTO RFX 3 /HPF (0-3); SQUAM EPITHELIAL CELL UR AURFX 0 /HPF (0-6); WBC, URINE AUTO RFX 9 /HPF (0-3)
[2025-03-16 01:15] LABS: LEUKOCYTE ESTERASE UR AUTO RFX TRACE (NEGATIVE)
[2025-03-16] MEDS: CALCIUM GLUCONATE 1,000 MG in DEXTROSE 5% (D5W) MINI-BAG PLU 100 ML IV ONE ×2 (01:41→12:59)
[2025-03-16] MEDS: MAG SULF 1GM/100ML (MAG RUN) 1 GM in IV 1 EA IV SCH (01:41)
[2025-03-16] MEDS: KCL 40MEQ in NS 1000ML 1,000 ML IV SCH (01:42)
[2025-03-16] MEDS: POTASSIUM CHLORIDE 10% LIQ 20MEQ/15ML UDC PO ONE (02:26)
[2025-03-16] MEDS ORDERED: MOM 30 ML SUSPENSION UDC PO PRN (02:45)
[2025-03-16] MEDS ORDERED: ACETAMINOPHEN 325 MG TAB PO PRN (02:45)
[2025-03-16] MEDS ORDERED: hydrALAZINE 20 MG/ML 1 ML VIAL IV PRN (02:50)
[2025-03-16] MEDS ORDERED: GLUCAGON INJ 1 MG VIAL SC PRN (03:00)
[2025-03-16] MEDS ORDERED: GLUCOSE 4 GM CHEW PO PRN (03:00)
[2025-03-16] MEDS ORDERED: DEXTROSE 50% 50 ML SYRINGE IV PRN (03:00)
[2025-03-16] MEDS: HYDROCORTISONE 100 MG/2 ML VIAL IV SCH (03:41)
[2025-03-16 04:38] LABS: CHLORIDE,RANDOM URINE 116.0 MMOL/L; POTASSIUM RANDOM URINE 19.0 MMOL/L; SODIUM,RANDOM URINE 134.0 MMOL/L
[2025-03-16 07:08] LABS: BASO # 0.1 10^3/uL (0.0-0.2); BASO % 0.9 % (0.0-1.0); EOS # 0.1 10^3/uL (0.0-0.5); EOS % 1.1 % (0.0-3.0); LYMPH # 0.9 10^3/uL (1.5-5.0); LYMPH % 13.4 % (24.0-44.0); MONO # 0.2 10^3/uL (0.0-0.8); MONO % 2.7 % (2.0-8.0); NEUTROPHILS # 5.4 10^3/uL (1.5-8.5); NEUTROPHILS % 81.3 % (36.0-66.0); PLATELET COUNT, AUTOMATED 280 10^3/uL (150-450)
[2025-03-16] MEDS: INSULIN LISPRO (NovoLOG) PER UNIT SC SCH ×2 (07:30→20:12)
[2025-03-16 07:39] LABS: ABG BASE EXCESS -3.6 (-2.0-2.0); ABG HCO3 19.3 MMOL/L (22.0-26.0); ABG O2 SATURATION 97.3 % (95.0-99.0); ABG PARTIAL PRESSURE CO2 28.8 mmHg (35.0-45.0); ABG PARTIAL PRESSURE O2 96.1 mmHg (75.0-100.0); ABG STANDARD HCO3 21.5 MMOL/L. (22.0-26.0); ABG TOTAL CO2 20.2 MMOL/L (23.0-31.0); ABG pH (ARTERIAL) 7.445 UNITS (7.350-7.450)
[2025-03-16] MEDS ORDERED: LEVOTHYROXINE 100 MCG (0.1 MG) 5ML SDV PF (SOLUTION FORM) IV SCH (09:00)
[2025-03-16] MEDS: DOCUSATE SODIUM 100 MG CAPSULE PO SCH (09:13)
[2025-03-16 11:23] LABS: ALT/SGPT 47 U/L (7.0-40); AST/SGOT 41 U/L (<34); CALCIUM LEVEL 8.9 MG/DL (8.3-10.6); CARBON DIOXIDE LEVEL 21 MMOL/L (20-31); CHLORIDE LEVEL 111 MMOL/L (98-107); CREATININE FOR GFR 0.91 MG/DL (0.55-1.30); GLOMERULAR FILTRATION RATE 61.8 (>32); MAGNESIUM LEVEL 2.4 MG/DL (1.8-2.4); PHOSPHORUS LEVEL 2.9 MG/DL (2.4-5.1); POTASSIUM SERUM 6.3 MMOL/L (3.5-5.1); SODIUM LEVEL 141 MMOL/L (136-145)
[2025-03-16 12:01] LABS: PTH INTACT 60.3 PG/ML (18.5-88.0)
[2025-03-16 12:09] LABS: THYROGLOBULIN ANTIBODY > 500.0 U/ML (<60.0); THYROID PEROXIDASE ANTIBODY > 1300.0 U/ML (<60.0)
[2025-03-16 12:29] LABS: CALCIUM LEVEL 8.9 MG/DL (8.3-10.6); CARBON DIOXIDE LEVEL 21.0 MMOL/L (20-31); CHLORIDE LEVEL 112.0 MMOL/L (98-107); CREATININE FOR GFR 0.9 MG/DL (0.55-1.30); GLOMERULAR FILTRATION RATE 62.7 (>32); PHOSPHORUS LEVEL 3.0 MG/DL (2.4-5.1); POTASSIUM SERUM 6.4 MMOL/L (3.5-5.1); SODIUM LEVEL 140.0 MMOL/L (136-145)
[2025-03-16] MEDS: SODIUM CHLORIDE 0.9% 1000 ML IV SCH (12:59)
[2025-03-16] MEDS: HumuLIN R (REGULAR) INSULIN (NovoLIN R) **100 U/ML** PER UNIT IV STA (13:00)
[2025-03-16] MEDS: DEXTROSE 50% 50 ML SYRINGE IV STA (13:00)
[2025-03-16] MEDS: FUROSEMIDE 40 MG/4 ML VIAL IV SCH (13:00)
[2025-03-16] MEDS: ALBUTEROL SULFATE 2.5 MG/0.5 ML INH CONCENTRATE NEB SOLN NEB SCH (13:10)
[2025-03-16] MEDS: PATIROMER SORBITEX CALCIUM 8.4GM POWDER PACKET PO ONE (13:19)
[2025-03-16] MEDS ORDERED: HOME MED LIST COMPLETE! XX SCH (13:20)
[2025-03-16] MEDS ORDERED: CEFD1CAP9 PO (13:20)
[2025-03-16] MEDS ORDERED: GLIP2.5T52 PO (13:20)
[2025-03-16] MEDS ORDERED: LEVO137T2 PO (13:20)
[2025-03-16] MEDS ORDERED: ASPI81TA26 PO (13:20)
[2025-03-16 14:02] LABS: CALCIUM LEVEL 9.0 MG/DL (8.3-10.6); CARBON DIOXIDE LEVEL 21.0 MMOL/L (20-31); CHLORIDE LEVEL 110.0 MMOL/L (98-107); CREATININE FOR GFR 0.9 MG/DL (0.55-1.30); GLOMERULAR FILTRATION RATE 62.7 (>32); POTASSIUM SERUM 5.7 MMOL/L (3.5-5.1); SODIUM LEVEL 142.0 MMOL/L (136-145)
[2025-03-16 16:37] LABS: CPK CREATINE PHOSPHOKINASE 154.0 U/L (34-145)
[2025-03-16 16:55] LABS: CALCIUM LEVEL 9.4 MG/DL (8.3-10.6); CARBON DIOXIDE LEVEL 18.0 MMOL/L (20-31); CHLORIDE LEVEL 110.0 MMOL/L (98-107); CREATININE FOR GFR 1.0 MG/DL (0.55-1.30); GLOMERULAR FILTRATION RATE 55.2 (>32); PHOSPHORUS LEVEL 2.9 MG/DL (2.4-5.1); POTASSIUM SERUM 4.3 MMOL/L (3.5-5.1); SODIUM LEVEL 143.0 MMOL/L (136-145)
[2025-03-16] MEDS ORDERED: LEVOTHYROXINE 100 MCG (0.1 MG) 5ML SDV PF (SOLUTION FORM) IV ONE (17:00)
[2025-03-16] MEDS: LEVOTHYROXINE 100 MCG (0.1 MG) 5ML SDV PF (SOLUTION FORM) IV ONE (18:17)
[2025-03-16] MEDS: INSULIN GLARGINE-YFGN 1 UNITS/0.01 ML SC SCH (20:11)
[2025-03-16] MEDS: ENOXAPARIN 40 MG/0.4 ML SYRINGE (J1650 PER 10MG) SC SCH (20:12)
[2025-03-16 21:30] LABS: CALCIUM LEVEL 9.3 MG/DL (8.3-10.6); CARBON DIOXIDE LEVEL 20.0 MMOL/L (20-31); CHLORIDE LEVEL 108.0 MMOL/L (98-107); CREATININE FOR GFR 1.13 MG/DL (0.55-1.30); GLOMERULAR FILTRATION RATE 47.7 (>32); POTASSIUM SERUM 4.9 MMOL/L (3.5-5.1); SODIUM LEVEL 140.0 MMOL/L (136-145)
[2025-03-17] VITALS (8 sets, daily range): BP systolic 133–159; BP diastolic 68–84; TEMP 97.4–98.1; O2SAT 97–98
[2025-03-17 01:50] LABS: CALCIUM LEVEL 8.9 MG/DL (8.3-10.6); CARBON DIOXIDE LEVEL 22.0 MMOL/L (20-31); CHLORIDE LEVEL 106.0 MMOL/L (98-107); CREATININE FOR GFR 1.25 MG/DL (0.55-1.30); GLOMERULAR FILTRATION RATE 42.2 (>32); POTASSIUM SERUM 4.9 MMOL/L (3.5-5.1); SODIUM LEVEL 138.0 MMOL/L (136-145)
[2025-03-17 05:07] LABS: CALCIUM LEVEL 9.1 MG/DL (8.3-10.6); CARBON DIOXIDE LEVEL 24.0 MMOL/L (20-31); CHLORIDE LEVEL 106.0 MMOL/L (98-107); CREATININE FOR GFR 1.24 MG/DL (0.55-1.30); GLOMERULAR FILTRATION RATE 42.7 (>32); PHOSPHORUS LEVEL 3.2 MG/DL (2.4-5.1); POTASSIUM SERUM 5.0 MMOL/L (3.5-5.1); SODIUM LEVEL 139.0 MMOL/L (136-145)
[2025-03-17 08:07] LABS: TOTAL 25(OH) VITAMIN D 28.8 NG/ML (20.0-100.0)
[2025-03-17 09:29] LABS: CALCIUM LEVEL 9.6 MG/DL (8.3-10.6); CARBON DIOXIDE LEVEL 24.0 MMOL/L (20-31); CHLORIDE LEVEL 106.0 MMOL/L (98-107); CREATININE FOR GFR 1.17 MG/DL (0.55-1.30); GLOMERULAR FILTRATION RATE 45.7 (>32); POTASSIUM SERUM 4.5 MMOL/L (3.5-5.1); SODIUM LEVEL 141.0 MMOL/L (136-145)
[2025-03-17] MEDS: LEVOTHYROXINE 100 MCG (0.1 MG) 5ML SDV PF (SOLUTION FORM) IV SCH (09:51)
[2025-03-17 11:55] LABS: FREE T4 0.49 NG/DL (0.89-1.76)
[2025-03-17] MEDS: INSULIN LISPRO (NovoLOG) PER UNIT SC SCH ×2 (12:00→21:44)
[2025-03-17] MEDS ORDERED: INSULIN GLARGINE-YFGN 1 UNITS/0.01 ML SC SCH (21:00)
[2025-03-17] MEDS: INSULIN GLARGINE-YFGN 1 UNITS/0.01 ML SC SCH (21:43)
[2025-03-18 00:18] VITALS: BP 150/69; TEMP 97.7; O2SAT 98
[2025-03-18] MEDS ORDERED: HYDROCORTISONE 100 MG/2 ML VIAL As Ordered ONE (03:38)
[2025-03-18 04:52] VITALS: BP 150/71; TEMP 97.7; O2SAT 98
[2025-03-18 08:00] VITALS: BP 142/66; TEMP 97.9; O2SAT 95
[2025-03-18 08:25] LABS: PLATELET COUNT, AUTOMATED 291 10^3/uL (150-450)
[2025-03-18 08:51] LABS: CALCIUM LEVEL 9.2 MG/DL (8.3-10.6); CARBON DIOXIDE LEVEL 24.0 MMOL/L (20-31); CHLORIDE LEVEL 108.0 MMOL/L (98-107); CREATININE FOR GFR 1.2 MG/DL (0.55-1.30); GLOMERULAR FILTRATION RATE 44.4 (>32); MAGNESIUM LEVEL 2.0 MG/DL (1.8-2.4); POTASSIUM SERUM 5.3 MMOL/L (3.5-5.1); SODIUM LEVEL 142.0 MMOL/L (136-145)
[2025-03-18 08:53] LABS: FREE T4 0.55 NG/DL (0.89-1.76)
[2025-03-18] MEDS ORDERED: HYDROCORTISONE 100 MG/2 ML VIAL IV SCH (15:00)
[2025-03-18 19:45] VITALS: BP 148/80; TEMP 97.9; O2SAT 96
[2025-03-18] MEDS: HYDROCORTISONE 10 MG TAB PO SCH (20:11)
[2025-03-19 00:17] VITALS: BP 146/72; TEMP 97.2; O2SAT 96
[2025-03-19 03:49] VITALS: BP 142/76; TEMP 97.7; O2SAT 97
[2025-03-19 07:07] LABS: CALCIUM LEVEL 9.0 MG/DL (8.3-10.6); CARBON DIOXIDE LEVEL 25.0 MMOL/L (20-31); CHLORIDE LEVEL 107.0 MMOL/L (98-107); CREATININE FOR GFR 1.2 MG/DL (0.55-1.30); GLOMERULAR FILTRATION RATE 44.4 (>32); MAGNESIUM LEVEL 2.0 MG/DL (1.8-2.4); POTASSIUM SERUM 5.0 MMOL/L (3.5-5.1); SODIUM LEVEL 140.0 MMOL/L (136-145)
[2025-03-19 07:16] LABS: FREE T4 0.66 NG/DL (0.89-1.76)
[2025-03-19 12:17] VITALS: BP 131/72; TEMP 97.9; O2SAT 99
[2025-03-19] MEDS ORDERED: LEVO100T5 PO (15:18)
[2025-03-19] MEDS ORDERED: HYDR-4468 PO (15:18)
[2025-03-20] MEDS ORDERED: LEVOTHYROXINE 100 MCG TABLET (0.1 MG) PO SCH (06:00)
== END 2025-03-19 17:24 | disposition home or self-care (01) | DRG 644 ==
LOC: M ED 16:52 → M ED INP 03-16 02:43 → M PCU 03-16 05:34 → M MSPAV 03-17 17:38
PROVIDERS: ADMIT Student in an Organized Health Care Education/Training Program; ATTEND Internal Medicine
DX: E03.9 Hypothyroidism, unspecified (principal); I50.32 Chronic diastolic (congestive) heart failure; E87.20 Acidosis, unspecified; E87.0 Hyperosmolality and hypernatremia; I13.0 Hypertensive heart and chronic kidney disease with heart failure and stage 1 through stage 4 chronic kidney disease, or unspecified chronic kidney disease; N17.9 Acute kidney failure, unspecified; I48.0 Paroxysmal atrial fibrillation; E78.5 Hyperlipidemia, unspecified; E11.42 Type 2 diabetes mellitus with diabetic polyneuropathy; E11.319 Type 2 diabetes mellitus with unspecified diabetic retinopathy without macular edema; K59.00 Constipation, unspecified; M81.0 Age-related osteoporosis without current pathological fracture; M19.90 Unspecified osteoarthritis, unspecified site; Z98.49 Cataract extraction status, unspecified eye; Z90.49 Acquired absence of other specified parts of digestive tract; E87.6 Hypokalemia; E83.42 Hypomagnesemia; E87.8 Other disorders of electrolyte and fluid balance, not elsewhere classified; E83.51 Hypocalcemia; Z79.82 Long term (current) use of aspirin; Z79.890 Hormone replacement therapy; Z79.899 Other long term (current) drug therapy; Z88.8 Allergy status to other drugs, medicaments and biological substances; N18.30 Chronic kidney disease, stage 3 unspecified; E11.22 Type 2 diabetes mellitus with diabetic chronic kidney disease

== ENCOUNTER 2025-04-07 17:11 | Inpatient (IN) | payer MEDICARE ==
[~2025-04-07] VITALS: Ht 170.2 cm; Wt 52.3 kg
[~2025-04-07 17:11] MED LIST changes: +ASPI81TA26 PO; +GLIP2.5T52 PO; +HYDR-4468 PO; +LEVO100T5 PO; +LEVO137T2 PO
[2025-04-07 19:09] LABS: BASO # 0.0 10^3/uL (0.0-0.2); BASO % 0.6 % (0.0-1.0); EOS # 0.0 10^3/uL (0.0-0.5); EOS % 0.6 % (0.0-3.0); LYMPH # 1.1 10^3/uL (1.5-5.0); LYMPH % 16.3 % (24.0-44.0); MONO # 0.5 10^3/uL (0.0-0.8); MONO % 7.8 % (2.0-8.0); NEUTROPHILS # 5.0 10^3/uL (1.5-8.5); NEUTROPHILS % 74.3 % (36.0-66.0); PLATELET COUNT, AUTOMATED 249 10^3/uL (150-450)
[2025-04-07 19:35] LABS: CK-MB VALUE MASS 7.4 NG/ML (<3.6)
[2025-04-07 19:36] LABS: CPK CREATINE PHOSPHOKINASE 84 U/L (34-145); MB/CK RELATIVE INDEX 8.80 (< OR =4)
[2025-04-07 20:13] LABS: ALT/SGPT 36 U/L (7.0-40); AST/SGOT 21 U/L (<34); CALCIUM LEVEL 9.3 MG/DL (8.3-10.6); CARBON DIOXIDE LEVEL 24 MMOL/L (20-31); CHLORIDE LEVEL 101 MMOL/L (98-107); CREATININE FOR GFR 1.14 MG/DL (0.55-1.30); GLOMERULAR FILTRATION RATE 47.2 (>32); POTASSIUM SERUM 4.7 MMOL/L (3.5-5.1); SODIUM LEVEL 133 MMOL/L (136-145)
[2025-04-07 22:45] LABS: VENOUS BASE EXCESS -2.2 (-2.0-2.0); VENOUS HCO3 23.5 MMOL/L (23.0-27.0); VENOUS O2 SATURATION 49.3 % (60.0-80.0); VENOUS PARTIAL PRESSURE CO2 43.7 mmHg (38.0-50.0); VENOUS PARTIAL PRESSURE O2 25.8 mmHg (30.0-50.0); VENOUS PH 7.348 UNITS (7.330-7.430); VENOUS STANDARD HCO3 21.8 MMOL/L; VENOUS TOTAL CO2 24.8 MMOL/L (24.0-28.0)
[2025-04-07] MEDS: NS (Normal Saline) 0.9% 1,000 ML IV ONE (23:10)
[2025-04-07 23:37] LABS: OSMOLALITY SERUM 342.0 MOSM/KG (280-301)
[2025-04-07 23:38] LABS: ACETONE/KETONE 0.26 MMOL/L (0.02-0.27)
[2025-04-07 23:41] LABS: FREE T4 1.42 NG/DL (0.89-1.76)
[2025-04-08] MEDS: HumuLIN R (REGULAR) INSULIN (NovoLIN R) **100 U/ML** PER UNIT IV ONE (00:04)
[2025-04-08] MEDS ORDERED: NS (Normal Saline) 0.9% 1,000 ML IV SCH ×2 (00:05→04:00)
[2025-04-08] MEDS: INSULIN REGULAR IN 0.9 % NACL 100 UNIT in IV 1 EA IV SCH (01:00)
[2025-04-08] MEDS: SODIUM CHLORIDE 0.9% 1000 ML IV ONE (01:30)
[2025-04-08 01:34] LABS: VENOUS BASE EXCESS -6.9 (-2.0-2.0); VENOUS HCO3 18.9 MMOL/L (23.0-27.0); VENOUS O2 SATURATION 72.0 % (60.0-80.0); VENOUS PARTIAL PRESSURE CO2 39.2 mmHg (38.0-50.0); VENOUS PARTIAL PRESSURE O2 39.7 mmHg (30.0-50.0); VENOUS PH 7.302 UNITS (7.330-7.430); VENOUS STANDARD HCO3 18.4 MMOL/L; VENOUS TOTAL CO2 20.1 MMOL/L (24.0-28.0)
[2025-04-08] MEDS: NS (Normal Saline) 0.9% 1,000 ML IV SCH (02:00)
[2025-04-08 02:08] LABS: OSMOLALITY SERUM 316.0 MOSM/KG (280-301)
[2025-04-08 02:11] LABS: CALCIUM LEVEL 8.0 MG/DL (8.3-10.6); CARBON DIOXIDE LEVEL 24.0 MMOL/L (20-31); CHLORIDE LEVEL 112.0 MMOL/L (98-107); CREATININE FOR GFR 1.03 MG/DL (0.55-1.30); GLOMERULAR FILTRATION RATE 53.3 (>32); POTASSIUM SERUM 3.3 MMOL/L (3.5-5.1); SODIUM LEVEL 147.0 MMOL/L (136-145)
[2025-04-08] MEDS: KCL 10MEQ/100ML SWI (KRUN) 10 MEQ in IV 1 EA IV ONE (02:58)
[2025-04-08] MEDS ORDERED: DEXTROSE 50% 50 ML SYRINGE IV PRN (03:30)
[2025-04-08] MEDS ORDERED: GLUCAGON INJ 1 MG VIAL SC PRN (03:30)
[2025-04-08] MEDS: D5W/LR 1,000 ML IV SCH (04:40)
[2025-04-08] MEDS ORDERED: SYNT100T PO (07:50)
[2025-04-08] MEDS ORDERED: HOME MED LIST COMPLETE! XX SCH (07:55)
[2025-04-08] MEDS: PANTOPRAZOLE 40MG VIAL IV SCH (08:04)
[2025-04-08] MEDS: HEPARIN SOD 5000 UNITS/ML 1 ML VIAL/SYRINGE SC SCH (08:05)
[2025-04-08] MEDS: INSULIN LISPRO (NovoLOG) PER UNIT SC SCH (08:06)
[2025-04-08] MEDS: LEVOTHYROXINE 100 MCG TABLET (0.1 MG) PO SCH (09:35)
[2025-04-08] MEDS: ACETAMINOPHEN 500 MG TAB PO SCH (09:36)
[2025-04-08] MEDS: POTASSIUM CHLORIDE 10MEQ SR TABLET PO ONE (09:36)
[2025-04-08] MEDS: ASPIRIN 81 MG ENTERIC TABLET PO SCH (09:36)
[2025-04-08] MEDS: LIDOCAINE 5% PATCH TD SCH (09:37)
[2025-04-08] MEDS: NS 0.45% 1,000 ML IV SCH (10:07)
[2025-04-08 12:17] LABS: DIGOXIN LEVEL 0.3 NG/ML (0.8-2.0)
[2025-04-08 12:29] LABS: CALCIUM LEVEL 8.4 MG/DL (8.3-10.6); CARBON DIOXIDE LEVEL 22.0 MMOL/L (20-31); CHLORIDE LEVEL 110.0 MMOL/L (98-107); CREATININE FOR GFR 0.95 MG/DL (0.55-1.30); GLOMERULAR FILTRATION RATE 58.7 (>32); MAGNESIUM LEVEL 1.7 MG/DL (1.8-2.4); PHOSPHORUS LEVEL 2.2 MG/DL (2.4-5.1); POTASSIUM SERUM 4.4 MMOL/L (3.5-5.1); SODIUM LEVEL 142.0 MMOL/L (136-145)
[2025-04-08 12:32] LABS: ESTIMATED AVERAGE GLUCOSE 286.0 MG/DL (60-110)
[2025-04-08 16:00] VITALS: BP 142/67; TEMP 97.3; O2SAT 97
[2025-04-08 20:05] VITALS: BP 140/67; TEMP 97.9; O2SAT 97
[2025-04-08] MEDS: LanTUS (INSULIN GLARGINE INJ) 1 UNITS/0.01 ML SC SCH (20:54)
[2025-04-09 03:35] VITALS: BP 146/64; TEMP 98.1; O2SAT 98
[2025-04-09 07:47] LABS: PLATELET COUNT, AUTOMATED 207 10^3/uL (150-450)
[2025-04-09 09:00] VITALS: BP 163/76; TEMP 97.7; O2SAT 98
[2025-04-09] MEDS: DIGOXIN 0.125 MG TAB PO SCH (10:25)
[2025-04-09] MEDS: LEVOTHYROXINE 25 MCG TABLET (0.025MG) PO ONE (11:33)
[2025-04-09] MEDS: MAG SULF 1GM/100ML (MAG RUN) 1 GM in IV 1 EA IV ONE (11:35)
[2025-04-09 11:46] VITALS: BP 161/78; TEMP 97.7; O2SAT 97
[2025-04-09] MEDS: INSULIN LISPRO (NovoLOG) PER UNIT SC SCH ×4 (13:25→21:00)
[2025-04-09 18:36] VITALS: BP 159/81
[2025-04-09] MEDS: amLODIPine 10 MG TAB PO ONE (18:36)
[2025-04-09 20:30] VITALS: BP 134/49; TEMP 97.9; O2SAT 97
[2025-04-09] MEDS ORDERED: INSULIN LISPRO (NovoLOG) PER UNIT SC SCH (21:00)
[2025-04-09] MEDS ORDERED: LanTUS (INSULIN GLARGINE INJ) 1 UNITS/0.01 ML SC SCH (21:00)
[2025-04-09] MEDS: LanTUS (INSULIN GLARGINE INJ) 1 UNITS/0.01 ML SC SCH (21:06)
[2025-04-10 04:39] VITALS: BP 120/55; TEMP 97.7; O2SAT 96
[2025-04-10] MEDS: LEVOTHYROXINE 75 MCG TABLET (0.075 MG) PO SCH (05:33)
[2025-04-10] MEDS ORDERED: LEVOTHYROXINE 125 MCG TABLET (0.125 MG) PO SCH (06:00)
[2025-04-10] MEDS ORDERED: PILL CUTTER 1 EACH XX PRN (12:20)
[2025-04-10] MEDS: SIMETHICONE 80MG CHEW TAB PO ONE (12:31)
[2025-04-10] MEDS: BISACODYL 10 MG SUPP PR ONE (14:16)
[2025-04-10] MEDS ORDERED: SIMETHICONE 80MG CHEW TAB PO PRN (16:00)
[2025-04-11 04:23] VITALS: BP 137/69; TEMP 97.5; O2SAT 98
[2025-04-11] MEDS: PANTOPRAZOLE 40MG TAB PO SCH (09:01)
[2025-04-11] MEDS: MIRALAX *UNIT DOSE* 17 GM PACKET PO SCH (13:30)
[2025-04-11] MEDS: LACTULOSE 20 GM/30 ML SYRUP UDC PO ONE (13:30)
[2025-04-11 13:49] LABS: CALCIUM LEVEL 8.9 MG/DL (8.3-10.6); CARBON DIOXIDE LEVEL 25.0 MMOL/L (20-31); CHLORIDE LEVEL 103.0 MMOL/L (98-107); CREATININE FOR GFR 1.02 MG/DL (0.55-1.30); GLOMERULAR FILTRATION RATE 53.9 (>32); POTASSIUM SERUM 4.9 MMOL/L (3.5-5.1); SODIUM LEVEL 136.0 MMOL/L (136-145)
[2025-04-12 01:05] VITALS: O2SAT 82
[2025-04-12 01:08] VITALS: O2SAT 92
[2025-04-12 04:20] VITALS: BP 158/70; TEMP 97.7; O2SAT 97
[2025-04-12] MEDS: LACTULOSE 20 GM/30 ML SYRUP UDC PO PRN (13:57)
[2025-04-13 03:52] VITALS: BP 153/69; TEMP 97.5; O2SAT 98
[2025-04-13] MEDS: MOM 30 ML SUSPENSION UDC PO PRN (09:09)
[2025-04-13] MEDS: BISACODYL 10 MG SUPP PR PRN (15:13)
[2025-04-13] MEDS: INSULIN LISPRO (NovoLOG) PER UNIT SC SCH (17:56)
[2025-04-13] MEDS: metFORMIN 500 MG TAB PO SCH (17:57)
[2025-04-13] MEDS: LanTUS (INSULIN GLARGINE INJ) 1 UNITS/0.01 ML SC SCH (21:09)
[2025-04-14 02:51] VITALS: BP 193/90; TEMP 97.9; O2SAT 96
[2025-04-14 03:47] LABS: VENOUS BASE EXCESS 1.4 (-2.0-2.0); VENOUS HCO3 27.0 MMOL/L (23.0-27.0); VENOUS O2 SATURATION 78.9 % (60.0-80.0); VENOUS PARTIAL PRESSURE CO2 46.6 mmHg (38.0-50.0); VENOUS PARTIAL PRESSURE O2 42.1 mmHg (30.0-50.0); VENOUS PH 7.381 UNITS (7.330-7.430); VENOUS STANDARD HCO3 25.4 MMOL/L; VENOUS TOTAL CO2 28.4 MMOL/L (24.0-28.0)
[2025-04-14 03:54] LABS: BASO # 0.1 10^3/uL (0.0-0.2); BASO % 0.7 % (0.0-1.0); EOS # 0.1 10^3/uL (0.0-0.5); EOS % 0.7 % (0.0-3.0); LYMPH # 2.3 10^3/uL (1.5-5.0); LYMPH % 23.8 % (24.0-44.0); MONO # 0.9 10^3/uL (0.0-0.8); MONO % 9.6 % (2.0-8.0); NEUTROPHILS # 6.1 10^3/uL (1.5-8.5); NEUTROPHILS % 64.0 % (36.0-66.0); PLATELET COUNT, AUTOMATED 314 10^3/uL (150-450)
[2025-04-14 04:22] LABS: ACETONE/KETONE 0.08 MMOL/L (0.02-0.27); ALT/SGPT 115 U/L (7.0-40); AST/SGOT 106 U/L (<34); CALCIUM LEVEL 8.8 MG/DL (8.3-10.6); CARBON DIOXIDE LEVEL 26 MMOL/L (20-31); CHLORIDE LEVEL 102 MMOL/L (98-107); CREATININE FOR GFR 1.42 MG/DL (0.55-1.30); GLOMERULAR FILTRATION RATE 36.3 (>32); MAGNESIUM LEVEL 2.0 MG/DL (1.8-2.4); PHOSPHORUS LEVEL 3.9 MG/DL (2.4-5.1); POTASSIUM SERUM 5.7 MMOL/L (3.5-5.1); SODIUM LEVEL 135 MMOL/L (136-145)
[2025-04-14] MEDS: GLUCOSE 4 GM CHEW PO PRN (04:30)
[2025-04-14 04:34] VITALS: BP 150/70; TEMP 98.2; O2SAT 97
[2025-04-14 04:49] LABS: OSMOLALITY SERUM 299 MOSM/KG (280-301)
[2025-04-14] MEDS ORDERED: ACETAMINOPHEN 325 MG TAB PO PRN (04:55)
[2025-04-14] MEDS: ALBUTEROL SULFATE 2.5 MG/0.5 ML INH CONCENTRATE NEB SOLN NEB ONE (04:56)
[2025-04-14] MEDS ORDERED: D5W/0.9% SODIUM CHLORIDE 1,000 ML IV SCH (05:00)
[2025-04-14] MEDS: D5W/0.9% SODIUM CHLORIDE 1,000 ML IV SCH (05:05)
[2025-04-14 10:24] LABS: CALCIUM LEVEL 8.0 MG/DL (8.3-10.6); CARBON DIOXIDE LEVEL 22.0 MMOL/L (20-31); CHLORIDE LEVEL 100.0 MMOL/L (98-107); CREATININE FOR GFR 1.34 MG/DL (0.55-1.30); GLOMERULAR FILTRATION RATE 38.9 (>32); POTASSIUM SERUM 4.9 MMOL/L (3.5-5.1); SODIUM LEVEL 132.0 MMOL/L (136-145)
[2025-04-14] MEDS: LanTUS (INSULIN GLARGINE INJ) 1 UNITS/0.01 ML SC SCH (21:45)
[2025-04-15 04:37] VITALS: BP 121/65; TEMP 98.1; O2SAT 97
[2025-04-15] MEDS ORDERED: LANTINJ4 SC (10:29)
[2025-04-15] MEDS ORDERED: LIDO5TD TD (10:33)
[2025-04-15] MEDS ORDERED: SITA50TAB PO (10:33)
[2025-04-15] MEDS ORDERED: METF500T13 PO (10:33)
[2025-04-15] MEDS ORDERED: LEVO75TA4 PO (10:33)
[2025-04-15] MEDS ORDERED: NOVOINJ3 SC (10:38)
== END 2025-04-15 14:40 | disposition swing bed (61) | DRG 638 ==
LOC: M ED 17:11 → EDBD 17:11 → M ED INP 04-08 00:03 → M MSPAV 04-08 15:46
PROVIDERS: ADMIT Student in an Organized Health Care Education/Training Program; ATTEND General Practice
DX: E11.00 Type 2 diabetes mellitus with hyperosmolarity without nonketotic hyperglycemic-hyperosmolar coma (NKHHC) (principal); I50.32 Chronic diastolic (congestive) heart failure; N17.9 Acute kidney failure, unspecified; I13.0 Hypertensive heart and chronic kidney disease with heart failure and stage 1 through stage 4 chronic kidney disease, or unspecified chronic kidney disease; M25.561 Pain in right knee; M25.562 Pain in left knee; M54.50 Low back pain, unspecified; T38.0X5A Adverse effect of glucocorticoids and synthetic analogues, initial encounter; E87.6 Hypokalemia; R29.6 Repeated falls; I48.0 Paroxysmal atrial fibrillation; M48.061 Spinal stenosis, lumbar region without neurogenic claudication; E11.65 Type 2 diabetes mellitus with hyperglycemia; E83.51 Hypocalcemia; E78.5 Hyperlipidemia, unspecified; D63.8 Anemia in other chronic diseases classified elsewhere; E11.649 Type 2 diabetes mellitus with hypoglycemia without coma; N18.30 Chronic kidney disease, stage 3 unspecified; E87.5 Hyperkalemia; I25.10 Atherosclerotic heart disease of native coronary artery without angina pectoris; E11.22 Type 2 diabetes mellitus with diabetic chronic kidney disease; E03.9 Hypothyroidism, unspecified; E11.42 Type 2 diabetes mellitus with diabetic polyneuropathy; E11.319 Type 2 diabetes mellitus with unspecified diabetic retinopathy without macular edema; K59.00 Constipation, unspecified; M19.90 Unspecified osteoarthritis, unspecified site; M81.0 Age-related osteoporosis without current pathological fracture; Z90.49 Acquired absence of other specified parts of digestive tract; Z98.49 Cataract extraction status, unspecified eye; Z79.82 Long term (current) use of aspirin; Z79.890 Hormone replacement therapy; Z79.84 Long term (current) use of oral hypoglycemic drugs; Z79.899 Other long term (current) drug therapy; Z88.8 Allergy status to other drugs, medicaments and biological substances

== ENCOUNTER → 2025-05-06 | Outpatient (REF) | payer MEDICARE ==
[~2025-05-06] MED LIST changes: +LANTINJ4 SC; +LEVO75TA4 PO; +LIDO5TD TD; +METF500T13 PO; +NOVOINJ3 SC; +SITA50TAB PO; +SYNT100T PO
[2025-05-06 17:06] LABS: FREE T4 1.71 NG/DL (0.89-1.76)
[2025-05-06 17:09] LABS: ALT/SGPT 53.0 U/L (7.0-40); AST/SGOT 36.0 U/L (<34); CALCIUM LEVEL 9.2 MG/DL (8.3-10.6); CARBON DIOXIDE LEVEL 21.0 MMOL/L (20-31); CHLORIDE LEVEL 111.0 MMOL/L (98-107); CREATININE FOR GFR 1.04 MG/DL (0.55-1.30); GLOMERULAR FILTRATION RATE 52.7 (>32); POTASSIUM SERUM 4.3 MMOL/L (3.5-5.1); SODIUM LEVEL 145.0 MMOL/L (136-145)
[2025-05-06 19:19] LABS: ESTIMATED AVERAGE GLUCOSE 226.0 MG/DL (60-110)
== END ==
LOC: M LAB REF 16:22
PROVIDERS: ATTEND Physician Assistant
DX: E11.9 Type 2 diabetes mellitus without complications (principal); E03.9 Hypothyroidism, unspecified

== ENCOUNTER 2025-05-24 13:39 | Observation (INO) | payer MEDICARE ==
[~2025-05-24] VITALS: Ht 170.2 cm; Wt 58.7 kg
[2025-05-24 14:57] LABS: BASO # 0.1 10^3/uL (0.0-0.2); BASO % 0.9 % (0.0-1.0); EOS # 0.1 10^3/uL (0.0-0.5); EOS % 1.2 % (0.0-3.0); LYMPH # 1.7 10^3/uL (1.5-5.0); LYMPH % 22.1 % (24.0-44.0); MONO # 0.8 10^3/uL (0.0-0.8); MONO % 10.1 % (2.0-8.0); NEUTROPHILS # 5.0 10^3/uL (1.5-8.5); NEUTROPHILS % 65.4 % (36.0-66.0); PLATELET COUNT, AUTOMATED 243 10^3/uL (150-450)
[2025-05-24 15:09] LABS: KETONE, URINE AUTO RFX NEGATIVE (NEGATIVE); MUCUS, URINE RFX LARGE (NEGATIVE); NITRITE, URINE AUTO RFX NEGATIVE (NEGATIVE); RBC, URINE AUTO RFX 0 /HPF (0-3); SQUAM EPITHELIAL CELL UR AURFX 4 /HPF (0-6); URIC ACID CRYSTALS RFX SMALL
[2025-05-24 15:10] LABS: LEUKOCYTE ESTERASE UR AUTO RFX 2+ (NEGATIVE); WBC, URINE AUTO RFX 49 /HPF (0-3)
[2025-05-24 15:29] LABS: CK-MB VALUE MASS 16.1 NG/ML (<3.6)
[2025-05-24 15:31] LABS: THYROXINE (T4) 6.4 UG/DL (4.5-10.9)
[2025-05-24 15:32] LABS: CALCIUM LEVEL 9.2 MG/DL (8.3-10.6); CARBON DIOXIDE LEVEL 23 MMOL/L (20-31); CHLORIDE LEVEL 108 MMOL/L (98-107); CPK CREATINE PHOSPHOKINASE 180 U/L (34-145); CREATININE FOR GFR 0.97 MG/DL (0.55-1.30); DIGOXIN LEVEL < 0.1 NG/ML (0.8-2.0); GLOMERULAR FILTRATION RATE 57.3 (>32); MAGNESIUM LEVEL 1.9 MG/DL (1.8-2.4); MB/CK RELATIVE INDEX 8.94 (< OR =4); POTASSIUM SERUM 4.6 MMOL/L (3.5-5.1); SODIUM LEVEL 143 MMOL/L (136-145)
[2025-05-24 15:37] LABS: T UPTAKE 40.9 % (22.5-37.0)
[2025-05-24] MEDS: LIDOCAINE 4% CREAM 5 GM (LMX4) TOP ONE (15:47)
[2025-05-24] MEDS ORDERED: GLUCOSE 4 GM CHEW PO PRN (16:35)
[2025-05-24] MEDS ORDERED: DEXTROSE 50% 50 ML SYRINGE IV PRN (16:35)
[2025-05-24] MEDS ORDERED: GLUCAGON INJ 1 MG VIAL SC PRN (16:35)
[2025-05-24] MEDS ORDERED: LEVO88TA3 PO (17:00)
[2025-05-24] MEDS ORDERED: ALEN70TA82 PO (17:02)
[2025-05-24] MEDS ORDERED: HOME MED LIST COMPLETE! XX SCH ×2 (17:05)
[2025-05-24] MEDS: NS (Normal Saline) 0.9% 1,000 ML IV SCH (17:09)
[2025-05-24 17:25] VITALS: BP 155/88; TEMP 98.1; O2SAT 99
[2025-05-24] MEDS: INSULIN LISPRO (NovoLOG) PER UNIT SC SCH ×2 (18:22→20:19)
[2025-05-24] MEDS: LanTUS (INSULIN GLARGINE INJ) 1 UNITS/0.01 ML SC SCH (20:30)
[2025-05-24 20:54] VITALS: BP 110/62; TEMP 99; O2SAT 99
[2025-05-25] MEDS: LEVOTHYROXINE 88 MCG TABLET (0.088 MG) PO SCH (06:19)
[2025-05-25 06:27] VITALS: BP 116/59; TEMP 98.1; O2SAT 98
[2025-05-25 07:12] LABS: PLATELET COUNT, AUTOMATED 239 10^3/uL (150-450)
[2025-05-25 07:43] LABS: ALT/SGPT 22.0 U/L (7.0-40); AST/SGOT 22.0 U/L (<34); CALCIUM LEVEL 8.5 MG/DL (8.3-10.6); CARBON DIOXIDE LEVEL 24.0 MMOL/L (20-31); CHLORIDE LEVEL 111.0 MMOL/L (98-107); CREATININE FOR GFR 0.94 MG/DL (0.55-1.30); GLOMERULAR FILTRATION RATE 59.5 (>32); POTASSIUM SERUM 4.0 MMOL/L (3.5-5.1); SODIUM LEVEL 145.0 MMOL/L (136-145)
[2025-05-25] MEDS: DIGOXIN 0.125 MG TAB PO SCH (08:54)
[2025-05-25] MEDS: ASPIRIN 81 MG ENTERIC TABLET PO SCH (08:56)
[2025-05-25] MEDS ORDERED: ENOXAPARIN 40 MG/0.4 ML SYRINGE (J1650 PER 10MG) SC SCH (09:00)
[2025-05-25 12:29] LABS: ESTIMATED AVERAGE GLUCOSE 223.0 MG/DL (60-110)
[2025-05-25] MEDS: ENOXAPARIN 30 MG/0.3 ML SYRINGE (J1650 PER 10MG) SC SCH (13:19)
[2025-05-25 14:05] VITALS: BP 135/75; TEMP 98.2; O2SAT 98
[2025-05-25] MEDS: ACETAMINOPHEN 325 MG TAB PO PRN (21:14)
[2025-05-25] MEDS: SENNOSIDES/DOCUSATE SODIUM 8.6 MG/50MG TAB PO SCH (21:14)
[2025-05-25] MEDS: LanTUS (INSULIN GLARGINE INJ) 1 UNITS/0.01 ML SC SCH (21:15)
[2025-05-25 22:50] VITALS: BP 140/75; TEMP 98.1; O2SAT 95
[2025-05-26 07:13] VITALS: BP 147/68; TEMP 98.2; O2SAT 98
[2025-05-26 09:00] VITALS: BP 138/78; TEMP 97.7
[2025-05-26] MEDS ORDERED: SENNOSIDES/DOCUSATE SODIUM 8.6 MG/50MG TAB PO PRN (10:30)
[2025-05-26 14:00] VITALS: BP 128/59; TEMP 98.3; O2SAT 98
[2025-05-26 21:58] VITALS: BP 150/69; TEMP 98.7; O2SAT 98
[2025-05-27 07:06] VITALS: BP 139/60; TEMP 97.6; O2SAT 98
[2025-05-27 08:50] VITALS: BP 164/65; TEMP 98.7; O2SAT 98
[2025-05-27] MEDS ORDERED: JANU50TA8 PO (10:59)
[2025-05-27] MEDS ORDERED: NORV2TAB PO (11:00)
== END 2025-05-27 13:20 ==
LOC: EDBD 13:39 → M ED 13:39 → M ED INP 13:40 → M MS5PR 17:25
PROVIDERS: ADMIT Internal Medicine; ATTEND Internal Medicine
DX: M62.81 Muscle weakness (generalized) (principal); W18.30XA Fall on same level, unspecified, initial encounter; R53.81 Other malaise; E11.9 Type 2 diabetes mellitus without complications; I10 Essential (primary) hypertension; I48.91 Unspecified atrial fibrillation; K59.00 Constipation, unspecified; E03.9 Hypothyroidism, unspecified; Z79.82 Long term (current) use of aspirin; Z79.899 Other long term (current) drug therapy
CPT/HCPCS: 36415; 73521; 73564; 80048; 80053; 80162; 81001; 82550; 82553; 83036; 83735; 84436; 84443; 84479; 84484; 85025; 85027; 87086; 87426; 93005; 96360; 96361; 96372; 97116; 97161; 97165; 97530; 99285; G0378; J1650; J1815